=== PATIENT | male | born 1970 | race Caucasian/White ===

== ENCOUNTER 2017-07-08 00:21 | Inpatient (IN) | payer OTHER ==
[~2017-07-08] VITALS: Ht 167.6 cm; Wt 114.3 kg
[2017-07-08 00:29] VITALS: BP 123/76
[2017-07-08 00:54] LABS: ABSOLUTE LYMPHOCYTES 1.9 thou/uL (0.8-5.3); ABSOLUTE NEUTROPHILS 13.2 thou/uL (1.6-8.1); BASOPHILS 0.3 %; HEMATOCRIT 46.9 % (42.0-52.0); HEMOGLOBIN 16.2 gm/dL (14.0-18.0); LYMPHOCYTES 11.7 %; MCH 28.9 pg (26.0-34.0); MCHC 34.5 g/dL (28.0-37.0); MCV 83.7 fL (80.0-100.0); MONOCYTES 6.1 %; MPV 8.5 fl. (7.2-11.1); NUCLEATED RBCS 0 /100WBC; PLATELET COUNT* 273 thou/uL (150-400); POLYS 81.9 %; RDW-CV 13.5 % (10.5-14.5); WBC 16.2 thou/uL (4.0-11.0)
[2017-07-08 00:57] LABS: ANION GAP 10 mmol/L (7-16); BUN 20 mg/dL (7-18); CALCIUM 8.7 mg/dL (8.5-10.1); CHLORIDE 103 mmol/L (98-107); CO2 28 mmol/L (21-32); CREATININE 1.2 mg/dL (0.6-1.3); GLUCOSE 143 mg/dL (70-99); POTASSIUM 3.3 mmol/L (3.5-5.1); SODIUM 141 mmol/L (136-145)
[2017-07-08 01:04] LABS: ALBUMIN 4.1 g/dL (3.4-5.0); ALKALINE PHOSPHATASE 83 U/L (46-116); SGOT 13 U/L (15-37); SGPT 40 U/L (30-65); TOTAL BILIRUBIN 1.4 mg/dL (<0.1-1.0); TOTAL PROTEIN 8.1 g/dL (6.4-8.2); TROPONIN-I LEVEL <0.06 ng/mL (<0.06)
[2017-07-08 01:18] LABS: APTT 28.1 Seconds (25.0-31.3); INR 1.1; PROTIME 10.7 Seconds (9.20-11.50)
[2017-07-08 01:21] LABS: NT-PRO BRAIN NAT PEPTIDE 88 pg/mL (<300)
[2017-07-08 01:37] LABS: AMYLASE 39 U/L (25-115); LIPASE 154 U/L (73-393)
[2017-07-08 03:00] VITALS: BP 106/65
[2017-07-08 03:23] LABS: URINE BILIRUBIN NEGATIVE (Negative); URINE BLOOD TRACE (Negative); URINE CLARITY CLEAR; URINE COLOR YELLOW; URINE GLUCOSE-RANDOM NEGATIVE (Negative); URINE KETONES NEGATIVE (Negative); URINE LEUKOCYTES-REFLEX NEGATIVE (Negative); URINE NITRITE-REFLEX NEGATIVE (Negative); URINE PROTEIN TRACE (Negative); URINE SPECIFIC GRAVITY <= 1.005 (1.005-1.030); URINE UROBILINOGEN 0.2 E.U./dl (0.2-1.0)
--- NOTE | 2017-07-08 07:50 | NUR ---
PT ARRIVED AT 0310 ADMITTED TO ROOM 105, PT COMPLAINS OF MILD ABD PAIN RATES 4/10 AND DESCRIBES SHARP PRESSURE, PT DENIES N/V, IS ALERT AND OREINTED X4, PT ABLE TO AMBULATE FROM STRETCHER TO BED WITHOUT DIFFICULTY, ASSESSMENT COMPLETE, MEDICATIONS ADMINISTERED AND IV FLUIDS INITIATED, PT RESTING QUIETLY WITH EYES CLOSED, REPORTED TO ALEXIS ARCINIEGA
[2017-07-08 08:01] VITALS: BP 103/64
--- NOTE | 2017-07-08 13:38 | EKG ---
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
--- NOTE | 2017-07-08 13:39 | EKG ---
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
[2017-07-08 16:53] VITALS: BP 120/82
--- NOTE | 2017-07-08 17:08 | NUR ---
ASSUMED CARE OF PATIENT AFTER REPORT THIS MORNING. PATIENT AWAKE, ALERT, AND ORIENTED APPROPRIATELY. PHYSICAL ASSESSMENT COMPLETED AND CHARTED. COMPLAINED OF PAIN THIS SHIFT. GIVEN PRN AND SCHEDULED MEDICATIONS, SEE EMAR FOR DOCUMENTATION. VITAL SIGNS STABLE. OXYGEN SATURATION WITHIN NORMAL LIMITS ON 2 LPM PER NASAL CANULA. ON ROOM AIR PATIENT'S OXYGEN SATURATION 87%. PATIENT IS UP AD JODI WITH BATHROOM PRIVELEGES. USES CALL LIGHT APPROPRIATELY, WITHIN REACH. DENIES NEEDS AT THIS TIME. NURSING WILL CONTINUE TO MONITOR.
[2017-07-09 01:08] VITALS: BP 126/78
--- NOTE | 2017-07-09 04:22 | NUR ---
PATIENT RESTING QUIETLY IN BED THIS AM ON HOURLY ROUNDS. PAIN CONTROLLED WITH TORADOL. UP AD JODI. IVF INFUSING ORDERED. NPO. VITALS STABLE. AFEBRILE. AT BEDSIDE. CONTINUE TO MONITOR.
[2017-07-09 05:05] LABS: HEMATOCRIT 42.4 % (42.0-52.0); HEMOGLOBIN 14.6 gm/dL (14.0-18.0); MCH 29.2 pg (26.0-34.0); MCHC 34.4 g/dL (28.0-37.0); MCV 84.8 fL (80.0-100.0); MPV 9.1 fl. (7.2-11.1); NUCLEATED RBCS 0 /100WBC; PLATELET COUNT* 210 thou/uL (150-400); RDW-CV 14.2 % (10.5-14.5); WBC 16.7 thou/uL (4.0-11.0)
[2017-07-09 05:14] LABS: CALCIUM 8.7 mg/dL (8.5-10.1); CREATININE 1.4 mg/dL (0.6-1.3); MAGNESIUM 2.1 mg/dL (1.8-2.4); PHOSPHORUS* 3.4 mg/dL (2.5-4.9); POTASSIUM 3.6 mmol/L (3.5-5.1)
[2017-07-09 07:01] LABS: ABSOLUTE LYMPHOCYTES 1.2 thou/uL (0.8-5.3); ABSOLUTE MONOCYTES 1.8 thou/uL (0.0-1.2); ABSOLUTE NEUTROPHILS 13.7 thou/uL (1.6-8.1); ATYPICAL LYMPHS 1 %; PLATELET ESTIMATE ADEQUATE
[2017-07-09 07:50] VITALS: BP 112/70
[2017-07-09 08:45] VITALS: BP 112/70
[2017-07-09 12:30] VITALS: BP 108/72
--- NOTE | 2017-07-09 15:43 | NUR ---
MET WITH PT TO DISCUSS HOME SITUATIN/DC PLANNING. PT LIVES WITH AND STEPDTR. 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 USES NO EQUIPMENT. HE DENIES ANY DC NEEDS AT THIS TIME. WILL FOLLOW
[2017-07-09 15:45] VITALS: BP 115/77
--- NOTE | 2017-07-09 15:56 | NUR ---
I agree with skilled nursing case manager, Sandra Cobb's assessment and VS documentation.
--- NOTE | 2017-07-09 18:50 | NUR ---
PATIENT REMAINED ALERT AND ORIENTED X'S 4. VITAL SIGNS AND SPO2 STABLE. IV CLEAN, FLUIDS INFUSING. PAIN WELL CONTROLLED WITH PAIN MEDS. TOLERATED DIET, NO NAUSEA AND VOMITING. COMPLETED WALKING FOR 20 MINUTES AROUND UNIT. PASSED BM AND VOIDED WITHOUT ISSUE. COMPLETED HOURLY ROUNDING. CALL LIGHT WITHIN REACH. WILL CONTINUE TO MONITOR.
[2017-07-10 00:29] VITALS: BP 104/64
--- NOTE | 2017-07-10 04:16 | NUR ---
PATIENT ALERT AND ORIENTED X4. UP AD JODI. PAIN CONTROLLED WITH SCHEDULED TORADOL AND DILUADID X1. IVF INFUSING ORDERED. VITALS STABLE ON 2L O2 NC. AT BEDSIDE. WILL CONTINUE TO MONITOR.
[2017-07-10 04:29] LABS: ABSOLUTE LYMPHOCYTES 0.8 thou/uL (0.8-5.3); ABSOLUTE MONOCYTES 0.8 thou/uL (0.0-1.2); ABSOLUTE NEUTROPHILS 11.4 thou/uL (1.6-8.1); BASOPHILS 0.1 %; EOSINOPHILS 0.1 %; HEMATOCRIT 39.5 % (42.0-52.0); HEMOGLOBIN 13.4 gm/dL (14.0-18.0); LYMPHOCYTES 6.1 %; MCV 85.2 fL (80.0-100.0); MONOCYTES 5.9 %; MPV 8.7 fl. (7.2-11.1); NUCLEATED RBCS 0 /100WBC; PLATELET COUNT* 212 thou/uL (150-400); POLYS 87.8 %; RBC 4.63 mil/uL (4.50-6.00)
[2017-07-10 04:52] LABS: ALBUMIN 3.1 g/dL (3.4-5.0); CALCIUM 8.6 mg/dL (8.5-10.1); CREATININE 1.2 mg/dL (0.6-1.3); POTASSIUM 3.9 mmol/L (3.5-5.1); TOTAL BILIRUBIN 1.4 mg/dL (<0.1-1.0); TOTAL PROTEIN 6.9 g/dL (6.4-8.2)
[2017-07-10 07:44] VITALS: BP 115/72
--- NOTE | 2017-07-10 15:18 | NUR ---
OBTAINED FMLA PAPER WORK FROM PT. PLACED ON INSIDE FRONT OF CHART FOR TO FILL OUT.
[2017-07-10 15:54] VITALS: BP 122/68
--- NOTE | 2017-07-10 17:46 | NUR ---
ASSUMED CARE OF PATIENT AFTER MORNING REPORT. ALERT AND ORIENTED X4. ASSESSMENT COMPLETED AND CHARTED. VSS 2.5 LITERS 02. PATIENT HAS HAD NO COMPLAINTS OF NAUSEA THIS SHIFT. PAIN HAS BEEN MANAGED WITH PAIN MEDICATION. FLUIDS AND ANTIBIOTICS INFUSED ORDERED. HOURLY ROUNDS HAVE BEEN MAINTAINED. CALL LIGHT IS WITHIN REACH. NURSING WILL CONTINUE TO MONITOR.
[2017-07-10 21:00] VITALS: BP 122/68
[2017-07-11] VITALS (13 sets, daily range): BP systolic 107–121; BP diastolic 66–77
--- NOTE | 2017-07-11 05:30 | NUR ---
PATIENT ALERT AND ORIENTED. VITALS STABLE. REPORTS MILD PAIN. DENIES THE NEED FOR PAIN MEDICATION. ZOFRAN GIVEN X 1. LOW GRADE FEVER OVER NIGHT. TYLENOL GIVEN. NPO SINCE MIDNIGHT. UP INDEPENDENTLY. REPORTS HAVING A BOWEL MOVEMENT YESTERDAY EVENING. HOURLY ROUNDS. NURSING WILL CONTINUE TO MONITOR.
[2017-07-11 05:56] LABS: HEMATOCRIT 37.6 % (42.0-52.0); MCH 29.2 pg (26.0-34.0); MCHC 34.6 g/dL (28.0-37.0); MCV 84.3 fL (80.0-100.0); MPV 8.4 fl. (7.2-11.1); RBC 4.46 mil/uL (4.50-6.00); RDW-CV 14.1 % (10.5-14.5); WBC 11.8 thou/uL (4.0-11.0)
[2017-07-11 06:08] LABS: CALCIUM 8.1 mg/dL (8.5-10.1); CREATININE 0.9 mg/dL (0.6-1.3); POTASSIUM 3.7 mmol/L (3.5-5.1)
--- NOTE | 2017-07-11 17:24 | NUR ---
ASSUMED CARE OF PATIENT AFTER MORNING REPORT. ALERT AND ORIENTED X4. ASSESSMENT COMPLETED AND CHARTED. VSS ON ROOM AIR. PAT DOES WEAR 2.5 LITERS 02 AT NIGHT BUT SATS ARE 91-93 ON ROOM AIR DURING THE DAY. PATIENT HAS HAD NO COMPLAINTS OF NAUSEA THIS SHIFT. PAIN HAS BEEN MANAGED WITH PAIN MEDICATION. PATIENT HAD A DRAIN PLACED IN THE LOWER LEFT ABDOMEN THIS AFTERNOON FOR DRAINAGE OF AN ABSCESS. PATIENT RETURNED TO ROOM AND ASSESSED. PATIENT INSTRUCTED TO USE CALL LIGHT FOR ASSISTANCE BEFORE GETTING UP AFTER PROCEDURE. HOURLY ROUNDS HAVE BEEN MAINTAINED. CALL LIGHT IS WITHIN REACH. NURSING WILL CONTINUE TO MONITOR.
[2017-07-12 04:10] VITALS: BP 111/63
[2017-07-12 04:35] LABS: HEMATOCRIT 37.3 % (42.0-52.0); HEMOGLOBIN 12.5 gm/dL (14.0-18.0); MCH 28.4 pg (26.0-34.0); MCHC 33.6 g/dL (28.0-37.0); MCV 84.5 fL (80.0-100.0); MPV 8.7 fl. (7.2-11.1); RBC 4.42 mil/uL (4.50-6.00); RDW-CV 14.2 % (10.5-14.5)
--- NOTE | 2017-07-12 04:51 | NUR ---
PATIENT ALERT AND ORIENTED X4. UP AD JODI IN ROOM, TOLERATED WELL. TOLERATING CLEAR LIQUIDS. IVF INFUSING ORDERED. PAIN CONTROLLED WITH DILAUDID, GIVEN X2 THIS SHIFT. ABCESS DRAIN PATENT. VITALS STABLE. CONTINUE TO MONITOR.
[2017-07-12 04:52] LABS: ALBUMIN 2.4 g/dL (3.4-5.0); MAGNESIUM 1.9 mg/dL (1.8-2.4); POTASSIUM 3.7 mmol/L (3.5-5.1); TOTAL BILIRUBIN 0.9 mg/dL (<0.1-1.0); TOTAL PROTEIN 6.5 g/dL (6.4-8.2)
[2017-07-12 08:30] VITALS: BP 126/67
[2017-07-12 16:00] VITALS: BP 119/73
--- NOTE | 2017-07-12 16:30 | NUR ---
PATIENT REMAINED ALERT AND ORIENTED X'S 4. VITAL SIGNS AND SPO2 STABLE. SLIGHT FEVER THIS MORNING, GAVE TYLENOL, FEVER SUBSIDED. IV CLEAN, FLUIDS INFUSING. PAIN WELL CONTROLLED WITH PAIN MEDS. TOLERATED CLEAR LIQUID DIET, NO NAUSEA AND VOMITING. TOLERATED ANTIBIOITICS. UP AD JODI. VOIDED AND PASSED BM. ABCESS DRAIN CLEAN, DRY, INTACT, FLUIDS DRAINING. COMPLETED HOURLY ROUNDING, CALL LIGHT WITHIN REACH. WILL CONTINUE TO MONITOR.
[2017-07-12 20:20] VITALS: BP 112/72
[2017-07-13 00:40] VITALS: BP 101/68
[2017-07-13 03:31] VITALS: BP 106/73
[2017-07-13 04:10] LABS: HEMATOCRIT 37.1 % (42.0-52.0); HEMOGLOBIN 12.5 gm/dL (14.0-18.0); MCH 28.7 pg (26.0-34.0); MCHC 33.8 g/dL (28.0-37.0); MPV 8.3 fl. (7.2-11.1); RBC 4.37 mil/uL (4.50-6.00); WBC 11.9 thou/uL (4.0-11.0)
[2017-07-13 04:20] LABS: CALCIUM 8.2 mg/dL (8.5-10.1); CREATININE 0.9 mg/dL (0.6-1.3); POTASSIUM 3.6 mmol/L (3.5-5.1)
--- NOTE | 2017-07-13 07:58 | NUR ---
Alert and oriented x 4. He has stable vital signs,O2 sat normal on 2L n/c. His abdomen was distended and he felt uncomfortable. He was having flatus and liquid BM's he stated. Bowel sounds were hypoactive. Dr Higgins notified and orders were received for n/g to low intermitten suction. N/g was placed at midnight in L nares and immediate 150 mls recieved then another 400 mls after. Placement confirmed. His abdomen had become more distended from 2000 to 0000 last evening. This am it appears less distended. He was medicated x 2 for abdominal pain. He is NPO.
[2017-07-13 08:05] VITALS: BP 102/62
[2017-07-13 16:00] VITALS: BP 111/60
--- NOTE | 2017-07-13 16:51 | NUR ---
ASSUMED CARE OF PATIENT AFTER MORNING REPORT. ALERT AND ORIENTED X4. ASSESSMENT COMPLETED AND CHARTED. VSS ON 2 LITERS 02. NO COMPLAINTS OF NAUSEA THIS SHIFT. PAIN HAS BEEN MANAGED WITH PAIN MEDICATION. PATIENT HOOKED TO INTERMITTENT SUCTION VIA NG TUBE WITH MINIMAL OUTPUT THIS SHIFT. PATIENT HAS ASKED TO BE DISCONNECTED FROM SUCTION TO WALK AROUND THE UNIT. PATIENT AMBULATES WELL AND SAFELY. PATIENT STATES THAT HE IS FEELING A LITTLE BIT BETTER SINCE NG PLACEMENT AND DECOMPRESSION. HOURLY ROUNDS HAVE BEEN MAINTAINED. CALL LIGHT IS WITHIN REACH. NURSING WILL CONTINUE TO MONITOR.
[2017-07-13 20:00] VITALS: BP 110/62
[2017-07-13 23:52] VITALS: BP 120/68
[2017-07-14 04:21] VITALS: BP 109/63
--- NOTE | 2017-07-14 05:03 | NUR ---
Alert and oriented x 4. Abdominal drain in LLQ is draining dark green drainage. He has ng to LIS and it also is draining green drainage. Bowel sounds x 4 active. He denies nausea. Abdomen is still distended but soft. He had pain meds x 1. Up independently in his room. O2 at 2L n/c. Vitals are stable. He has slept well.
[2017-07-14 05:14] LABS: HEMATOCRIT 38.5 % (42.0-52.0); HEMOGLOBIN 13.2 gm/dL (14.0-18.0); MCH 28.6 pg (26.0-34.0); MCHC 34.2 g/dL (28.0-37.0); MCV 83.4 fL (80.0-100.0); MPV 8.2 fl. (7.2-11.1); NUCLEATED RBCS 0 /100WBC; PLATELET COUNT* 271 thou/uL (150-400); RBC 4.61 mil/uL (4.50-6.00); RDW-CV 13.5 % (10.5-14.5); WBC 10.4 thou/uL (4.0-11.0)
[2017-07-14 06:00] LABS: ALBUMIN 2.5 g/dL (3.4-5.0); CALCIUM 8.1 mg/dL (8.5-10.1); CREATININE 0.7 mg/dL (0.6-1.3); MAGNESIUM 2.1 mg/dL (1.8-2.4); POTASSIUM 3.7 mmol/L (3.5-5.1); TOTAL BILIRUBIN 0.7 mg/dL (<0.1-1.0); TOTAL PROTEIN 5.8 g/dL (6.4-8.2)
[2017-07-14 06:15] LABS: ABSOLUTE EOSINOPHILS 0.1 thou/uL (0.0-0.7); ABSOLUTE LYMPHOCYTES 1.5 thou/uL (0.8-5.3); ABSOLUTE MONOCYTES 0.8 thou/uL (0.0-1.2); PLATELET ESTIMATE ADEQUATE
[2017-07-14 06:16] LABS: ANISOCYTOSIS Occasional
--- NOTE | 2017-07-14 06:43 | NUR ---
Patient accidently pulled out his NG tube. He denies nausea. He has bowel sounds x 4 and abdomen is soft. He states he had 3 BM's this am that equalled a large BM and they were formed stool. Surgical residents just rounded and they were told of the above. They said he could keep NG out and they are going to advance his diet.
--- NOTE | 2017-07-14 12:57 | NUR ---
PT'S MEDICAL CHART REVIEWED AND STATUS DISCUSSED W/ NSG. NSG INDICATES PT IS UP AD JODI INDEP IN ROOM W/O DME SUPPORT. PT VOICES NO CONCERNS REGARDING DISCHARGE TO HOME. PT DEMO STABLE INDEP MOBILITY IN ROOM W/O DME. NO FURTHER ACUTE PT SERVICES ARE INDICATED.
[2017-07-14 16:00] VITALS: BP 123/75
--- NOTE | 2017-07-14 16:29 | NUR ---
PATIENT REMAINS ALERT AND ORIENTED. DENIES PAIN OR NAUSEA. ABSCESS TUBE REMAINS IN PLACE WITH MINIMAL DARK GREEN DRAINAGE. PATIENT TOLERATING CLEAR LIQUIDS. AMBULATING AD JODI. VSS. REPORTS MULTIPLE BOWEL MOVEMENTS. CALL LIGHT WITHIN REACH. WILL CONTINUE TO MONITOR.
[2017-07-14 20:40] VITALS: BP 117/68
[2017-07-15 04:27] VITALS: BP 121/62
[2017-07-15 04:45] LABS: ABSOLUTE EOSINOPHILS 0.1 thou/uL (0.0-0.7); ABSOLUTE MONOCYTES 1.2 thou/uL (0.0-1.2); ABSOLUTE NEUTROPHILS 7.1 thou/uL (1.6-8.1); BASOPHILS 0.3 %; EOSINOPHILS 1.2 %; HEMATOCRIT 37.3 % (42.0-52.0); HEMOGLOBIN 12.9 gm/dL (14.0-18.0); LYMPHOCYTES 10.3 %; MCH 28.5 pg (26.0-34.0); MCHC 34.5 g/dL (28.0-37.0); MCV 82.5 fL (80.0-100.0); MONOCYTES 12.4 %; MPV 8.1 fl. (7.2-11.1); NUCLEATED RBCS 0 /100WBC; PLATELET COUNT* 314 thou/uL (150-400); POLYS 75.8 %; RBC 4.52 mil/uL (4.50-6.00); RDW-CV 14.1 % (10.5-14.5); WBC 9.4 thou/uL (4.0-11.0)
[2017-07-15 04:49] LABS: CALCIUM 8.2 mg/dL (8.5-10.1); CREATININE 0.8 mg/dL (0.6-1.3); POTASSIUM 3.5 mmol/L (3.5-5.1)
--- NOTE | 2017-07-15 05:32 | NUR ---
PATIENT ALERT AND ORIENTED. VITALS STABLE. RA. COMPLAINTS OF MILD NAUSEA. ZOFRAN GIVEN X 1. UP INDEPENDENTLY IN ROOM. REPORTS MULTIPLE BOWEL MOVEMENTS. ABSCESS DRAIN IN PLACE WITH MINIMAL OUTPUT. HOURLY ROUNDS. NURSING WILL CONTINUE TO MONITOR.
[2017-07-15 07:30] VITALS: BP 111/77
[2017-07-15 16:32] VITALS: BP 110/71
--- NOTE | 2017-07-15 17:06 | NUR ---
ALERT AND ORIENTED X4. UP AD JODI IN ROOM. IV IS PATENT AND SALINE LOCKED. DENIES PAIN AND NAUSEA. TOLERATING CLEAR LIQUID DIET. VSS ON ROOM AIR. HOURLY ROUNDS HAVE BEEN MAINTAINED THROUGHOUT SHIFT. CALL LIGHT IS WITH IN REACH. NURSING WILL CONTINUE TO MONITOR.
[2017-07-16 04:21] VITALS: BP 109/60
--- NOTE | 2017-07-16 04:39 | NUR ---
PATIENT ORIENTED X4 ON HOURLY ROUNDS. VITALS STABLE ON ROOM AIR. UP AD JODI. DENIES NEED FOR PAIN OR NAUSEA MEDICATION. IV ABX INFUSED ORDERED. NPO SINCE MIDNIGHT. WILL CONTINUE TO MONITOR.
[2017-07-16 04:48] LABS: ABSOLUTE EOSINOPHILS 0.1 thou/uL (0.0-0.7); ABSOLUTE LYMPHOCYTES 1.2 thou/uL (0.8-5.3); ABSOLUTE NEUTROPHILS 8.3 thou/uL (1.6-8.1); BASOPHILS 0.3 %; CALCIUM 8.1 mg/dL (8.5-10.1); CREATININE 0.8 mg/dL (0.6-1.3); EOSINOPHILS 1.2 %; HEMATOCRIT 38.5 % (42.0-52.0); HEMOGLOBIN 13.2 gm/dL (14.0-18.0); LYMPHOCYTES 11.2 %; MCH 28.5 pg (26.0-34.0); MCHC 34.2 g/dL (28.0-37.0); MCV 83.3 fL (80.0-100.0); MONOCYTES 9.8 %; MPV 8.4 fl. (7.2-11.1); NUCLEATED RBCS 0 /100WBC; PLATELET COUNT* 327 thou/uL (150-400); POLYS 77.5 %; RBC 4.63 mil/uL (4.50-6.00); RDW-CV 13.8 % (10.5-14.5); WBC 10.7 thou/uL (4.0-11.0)
[2017-07-16 08:00] VITALS: BP 112/62
[2017-07-16] MEDS ORDERED: FLAGYL500 MG PO (11:27)
[2017-07-16] MEDS ORDERED: BACTRIM DS TAB1 EACH PO (11:27)
[2017-07-16 16:00] VITALS: BP 102/65
--- NOTE | 2017-07-16 16:07 | NUR ---
PATIENT REMAINS ALERT AND ORIENTED. DENIES PAIN OR NAUSEA. PO ANTIBIOTICS STARTED THIS AFTERNOON. TOLERATING REGULAR DIET. IV SALINE LOCKED. DR. GLEASON INFORMED THAT SURGERY WAS OK WITH DISCHARGE FOR PATIENT. DR. GLEASON WOULD LIKE PATIENT TO STAY UNTIL TOMORROW. PATIENT AMBULATES AD JODI. BM THIS AM. VOIDING WELL. PAINT SUPERVISOR PULLED ABSCESS DRAINAGE TUBE THIS AFTERNOON. CALL LIGHT WITHIN REACH. WILL CONTINUE TO MONITOR.
[2017-07-16 20:00] VITALS: BP 117/76
[2017-07-17 00:02] VITALS: BP 117/70
[2017-07-17 04:02] LABS: HEMATOCRIT 39.1 % (42.0-52.0); HEMOGLOBIN 13.3 gm/dL (14.0-18.0); MCH 28.5 pg (26.0-34.0); MCHC 34.1 g/dL (28.0-37.0); MCV 83.5 fL (80.0-100.0); MPV 8.1 fl. (7.2-11.1); NUCLEATED RBCS 0 /100WBC; PLATELET COUNT* 354 thou/uL (150-400); RBC 4.68 mil/uL (4.50-6.00); RDW-CV 13.8 % (10.5-14.5)
[2017-07-17 04:31] LABS: CALCIUM 7.9 mg/dL (8.5-10.1); CREATININE 0.8 mg/dL (0.6-1.3); POTASSIUM 4.1 mmol/L (3.5-5.1)
--- NOTE | 2017-07-17 04:38 | NUR ---
PATIENT ORIENTED X4 THROUGHOUT THE SHIFT. UP AD JODI. TOLERATING DIET. DENIES PAIN OR NAUSEA. VITALS STABLE. AT BEDSIDE. CONTINUE TO MONITOR.
[2017-07-17 06:24] LABS: ABSOLUTE LYMPHOCYTES 1.7 thou/uL (0.8-5.3); ABSOLUTE MONOCYTES 0.6 thou/uL (0.0-1.2); ABSOLUTE NEUTROPHILS 11.8 thou/uL (1.6-8.1); ANISOCYTOSIS 1+; PLATELET ESTIMATE ADEQUATE; POIKILOCYTOSIS 1+
[2017-07-17 08:03] VITALS: BP 128/64
[2017-07-17 10:14] VITALS: BP 128/64
--- NOTE | 2017-07-17 11:40 | NUR ---
CM SPOKE TO THE PATIENT TO DISCUSS ANY QUESTIONS OR CONCERNS HAT HE MAY HAVE AND TO INFORM THAT THE PATIENTS [employer] PAPERWORK HAD BEEN SIGNED BY THE PHYSICIAN AND FAXED TO HIS EMPLOYER. PATIENT HAS NO QUESTIONS OR CONCERNS AT THIS TIME. CM WILL REMAIN AVAILABLE TO ASSIST AND FOLLOW NEEDED.
--- NOTE | 2017-07-17 11:43 | NUR ---
Nutrition: Educated pt on low-residue diet per nursing request. Provided with ADA Low-Fiber Nutrition Therapy handout. Discussed foods to choose & avoid during diverticulits flare-ups. Pt exhibited a good understanding. Pt states he is eating much better now. Provided with RD contact info to call with questions.
--- NOTE | 2017-07-17 13:12 | NUR ---
PATIENT DISCHARGED TO HOME AT THIS TIME. IV REMOVED. POSTAL SUPERINTENDENT PROVIDED PATIENT WITH INFORMATION ON LOW RESIDE, AND HIGH FIBER DIET. SCRIPTS FOR ORAL ANTIBIOTICS GIVEN. TOLERATING MEALS. DISCHARGED WITH .
--- NOTE | 2017-08-12 16:34 | CON ---
[address] [address] CONSULTATION Name: AUTUMN ROBERTSON Room: [address]#: [id number] Admission: 07/08/17 Attend Phys: Taylor Gates Discharge: 07/17/17 Date of : 68 Report #: [id number] THIS REPORT FOR: //name// CC: KEEGAN physician/PCP Aubrey Costello REASON FOR CONSULTATION: I was asked to evaluate concerning diverticular abscess. HISTORY OF PRESENT ILLNESS: The patient is a 46-year-old admitted on 07/08/2017 with acute onset abdominal pain associated with fever and chills. CT scan showed evidence of diverticulitis with perforation. Drain was placed. Placed on IV antibiotic therapy including ciprofloxacin and metronidazole. Overall, his pain has diminished. His temperature has come down. No prior history of GI or issues. ALLERGIES: INCLUDE PENICILLIN. MEDICATIONS: As noted on his MAR including the ciprofloxacin and metronidazole. PAST MEDICAL HISTORY: Vasectomy and nasal surgery. FAMILY HISTORY: Cancer. SOCIAL HISTORY: He is a nonsmoker, no significant alcohol intake. REVIEW OF SYSTEMS: No cardiopulmonary or complaints. PHYSICAL EXAMINATION: VITAL SIGNS: Afebrile and hemodynamically stable. GENERAL: He is alert and cooperative. Peripheral IV in place. HEENT: Unremarkable. CHEST: Clear. HEART: Regular. GASTROINTESTINAL: Moderately obese. Abdomen was mildly distended with tenderness in the left lower quadrant. A drain with green fluid in the bag. EXTERNAL GENITALIA: Unremarkable. EXTREMITIES: Unremarkable. LABORATORY STUDIES: Sodium 139, potassium 3.6, bicarbonate 32, creatinine 0.9. Liver function test normal. Hemoglobin 12.5, white count 11.9 down from 16.2 on admission, platelet count 220,000. Differential unremarkable. Urinalysis, trace protein, otherwise unremarkable. Abscess culture currently pending. Gram stain showed gram-positive cocci. Blood culture is negative today. CT of the abdomen showed sigmoid diverticulitis with air fluid level in the pelvis. There was small-bowel obstruction developing posterior [place] [address] CONSULTATION Name: AUTUMN ROBERTSON Room: [address]#: [id number] Admission: 07/08/17 Attend Phys: Taylor Gates Discharge: 07/17/17 Date of : 68 Report #: [id number] IMPRESSION: Diverticulitis with perforation and abscess. The fluid that is in his drainage bag looks thin, bilious in color. I am concerned about small bowel injury. The patient has ALLERGY TO PENICILLIN. PLAN: Recommend continuing antibiotic coverage with meropenem. Follow laboratory studies and drainage output. <ELECTRONICALLY SIGNED> By: Marcell Clemons MD 08/12/17 1634 1447 1925Marcell Clemons MD /nt
== END 2017-07-17 13:12 | disposition home or self-care (01) | DRG 872 ==
LOC: M.ERS 00:21 → M.TBA-ER 02:11 → M.ORTHSURG 02:11
PROVIDERS: Family Medicine; Personal Emergency Response Attendant; Surgery; ADMIT Internal Medicine
PROC: 0W9G30Z Drainage of Peritoneal Cavity with Drainage Device, Percutaneous Approach (ICD-10-PCS; principal; 2017-07-11)
DX: A41.9 Sepsis, unspecified organism (principal); K57.20 Diverticulitis of large intestine with perforation and abscess without bleeding; N17.9 Acute kidney failure, unspecified; J96.10 Chronic respiratory failure, unspecified whether with hypoxia or hypercapnia; K56.609 Unspecified intestinal obstruction, unspecified as to partial versus complete obstruction; E87.6 Hypokalemia; N18.3 Chronic kidney disease, stage 3 (moderate); Z98.52 Vasectomy status; Z88.0 Allergy status to penicillin; Z80.9 Family history of malignant neoplasm, unspecified

== ENCOUNTER → 2017-09-23 | Outpatient (CLI) | payer OTHER ==
[~2017-09-23] MED LIST: ACIDOPHILUS1 EAC4 PO; BACTRIM DS TAB1 EACH PO; CARAFATE 11 GM/10 M1 PO; CIPRO500 MG PO; COLACE100 MG PO; FLAGYL500 MG PO; HYDROCODONE-AP1 EAC6 PO; MIRALAX17 GM PO; PHENERGAN12.5 M2 PO; PROTONIX40 M1 PO; REGLAN 10 MG TA10 MG PO; THERA M PLUS T1 EAC2 PO; TRAMADOL 50 MG50 MG PO; ZYVOX600 MG PO
[2017-09-23 08:43] LABS: ABSOLUTE EOSINOPHILS 0.1 thou/uL (0.0-0.7); ABSOLUTE LYMPHOCYTES 1.7 thou/uL (0.8-5.3); ABSOLUTE MONOCYTES 0.5 thou/uL (0.0-1.2); ABSOLUTE NEUTROPHILS 4.5 thou/uL (1.6-8.1); BASOPHILS 0.6 %; EOSINOPHILS 1.1 %; HEMATOCRIT 45.3 % (42.0-52.0); HEMOGLOBIN 15.7 gm/dL (14.0-18.0); LYMPHOCYTES 24.6 %; MCH 28.4 pg (26.0-34.0); MCHC 34.6 g/dL (28.0-37.0); MONOCYTES 7.7 %; NUCLEATED RBCS 0 /100WBC; PLATELET COUNT* 229 thou/uL (150-400); RBC 5.52 mil/uL (4.50-6.00); RDW-CV 14.7 % (10.5-14.5); WBC 6.8 thou/uL (4.0-11.0)
[2017-09-23 08:57] LABS: ALBUMIN 3.7 g/dL (3.4-5.0); CALCIUM 8.7 mg/dL (8.5-10.1); CREATININE 0.8 mg/dL (0.6-1.3); POTASSIUM 3.7 mmol/L (3.5-5.1); TOTAL BILIRUBIN 0.8 mg/dL (<0.1-1.0); TOTAL PROTEIN 7.8 g/dL (6.4-8.2)
[2017-09-23 09:46] LABS: ESR (SEDRATE) 3 mm/hr (0-15)
== END ==
LOC: M.CT 08:26
PROVIDERS: Internal Medicine Gastroenterology
DX: K57.92 Diverticulitis of intestine, part unspecified, without perforation or abscess without bleeding (principal)

== ENCOUNTER 2017-11-14 06:59 | Inpatient (IN) | payer OTHER ==
[~2017-11-14] VITALS: Ht 165.1 cm; Wt 111.1 kg
--- NOTE | ~2017-11-14 | H ---
[address] [address] HISTORY AND PHYSICAL Name: AUTUMN ROBERTSON Room: [address] IN ..#: [id number] Admission: 11/14/17 Attend Phys: Faiza Prieto DO Discharge: 11/21/17 Date of : 68 Report #: [id number] THIS REPORT FOR: //name// Please refer to the History and Physical performed in the physician's office. By: [facility]5Medical Records Staff MAYANK /LUCIE
[~2017-11-14 06:59] MED LIST changes: -ACIDOPHILUS1 EAC4 PO; -CARAFATE 11 GM/10 M1 PO; -CIPRO500 MG PO; -COLACE100 MG PO; -HYDROCODONE-AP1 EAC6 PO; -MIRALAX17 GM PO; -PHENERGAN12.5 M2 PO; -PROTONIX40 M1 PO; -REGLAN 10 MG TA10 MG PO; -THERA M PLUS T1 EAC2 PO; -TRAMADOL 50 MG50 MG PO; -ZYVOX600 MG PO
[2017-11-14 07:15] VITALS: BP 122/80
[2017-11-14 08:08] LABS: HEMATOCRIT 48.1 % (42.0-52.0); HEMOGLOBIN 16.3 gm/dL (14.0-18.0); MCH 28.8 pg (26.0-34.0); MCV 84.7 fL (80.0-100.0); MPV 8.6 fl. (7.2-11.1); RBC 5.68 mil/uL (4.50-6.00); RDW-CV 14.4 % (10.5-14.5); WBC 5.8 thou/uL (4.0-11.0)
[2017-11-14 08:20] LABS: CALCIUM 8.7 mg/dL (8.5-10.1); CREATININE 0.8 mg/dL (0.6-1.3); POTASSIUM 3.9 mmol/L (3.5-5.1)
[2017-11-14 08:35] LABS: ALBUMIN 3.9 g/dL (3.4-5.0); TOTAL BILIRUBIN 1.9 mg/dL (<0.1-1.0); TOTAL PROTEIN 8.2 g/dL (6.4-8.2)
[2017-11-14 14:20] VITALS: BP 118/71
[2017-11-14 21:30] VITALS: BP 124/76
[2017-11-15 03:30] VITALS: BP 113/73
[2017-11-15 03:59] LABS: HEMOGLOBIN 14.7 gm/dL (14.0-18.0); MCH 28.9 pg (26.0-34.0); MCHC 34.3 g/dL (28.0-37.0); MCV 84.2 fL (80.0-100.0); MPV 8.8 fl. (7.2-11.1); NUCLEATED RBCS 0 /100WBC; PLATELET COUNT* 216 thou/uL (150-400); RDW-CV 13.8 % (10.5-14.5); WBC 13.1 thou/uL (4.0-11.0)
[2017-11-15 04:04] LABS: CALCIUM 8.6 mg/dL (8.5-10.1); CREATININE 0.9 mg/dL (0.6-1.3)
[2017-11-15 04:30] LABS: ABSOLUTE LYMPHOCYTES 1.3 thou/uL (0.8-5.3); ABSOLUTE MONOCYTES 0.7 thou/uL (0.0-1.2); ABSOLUTE NEUTROPHILS 11.1 thou/uL (1.6-8.1); PLATELET ESTIMATE ADEQUATE
[2017-11-15 04:31] LABS: TOXIC GRANULATION 1+
[2017-11-15 08:44] VITALS: BP 103/75
[2017-11-15 16:00] VITALS: BP 115/75
[2017-11-15 21:30] VITALS: BP 135/92
[2017-11-15 23:51] VITALS: BP 132/83
[2017-11-16 04:30] VITALS: BP 129/83
[2017-11-16 08:30] VITALS: BP 123/73
[2017-11-16 16:25] VITALS: BP 134/70
[2017-11-16 20:00] VITALS: BP 117/71
[2017-11-17 00:06] LABS: HEMATOCRIT 43.3 % (42.0-52.0); MCH 29.2 pg (26.0-34.0); MCHC 34.6 g/dL (28.0-37.0); MCV 84.5 fL (80.0-100.0); MPV 8.3 fl. (7.2-11.1); RBC 5.13 mil/uL (4.50-6.00); RDW-CV 14.4 % (10.5-14.5); WBC 5.9 thou/uL (4.0-11.0)
[2017-11-17 00:30] VITALS: BP 112/60
[2017-11-17 01:00] LABS: BE -5.1 mmol/L (-2 to +3); HCO3 17.9 mmol/L (22.0-26.0); PCO2 28.7 mmHg (35.0-45.0); PO2 64.4 mmHg (75.0-100.0); pH 7.413 (7.340-7.450)
[2017-11-17 01:35] LABS: ANION GAP 8 mmol/L (7-16); BUN 21 mg/dL (7-18); CHLORIDE 100 mmol/L (98-107); CO2 25 mmol/L (21-32); CREATININE 1.2 mg/dL (0.6-1.3); GLUCOSE 102 mg/dL (70-99); SODIUM 133 mmol/L (136-145); TROPONIN-I LEVEL <0.06 ng/mL (<0.06)
[2017-11-17 05:00] VITALS: BP 112/65
[2017-11-17 07:01] LABS: CALCIUM 8.4 mg/dL (8.5-10.1); CREATININE 1.3 mg/dL (0.6-1.3); PHOSPHORUS* 2.7 mg/dL (2.5-4.9); POTASSIUM 4.2 mmol/L (3.5-5.1)
[2017-11-17 08:10] LABS: HEMATOCRIT 43.4 % (42.0-52.0); HEMOGLOBIN 14.6 gm/dL (14.0-18.0); MCH 28.9 pg (26.0-34.0); MCHC 33.6 g/dL (28.0-37.0); MCV 85.8 fL (80.0-100.0); MPV 9.1 fl. (7.2-11.1); NUCLEATED RBCS 0 /100WBC; PLATELET COUNT* 176 thou/uL (150-400); RBC 5.05 mil/uL (4.50-6.00); RDW-CV 14.5 % (10.5-14.5); WBC 7.3 thou/uL (4.0-11.0)
[2017-11-17 08:51] VITALS: BP 107/70
[2017-11-17 08:59] LABS: ABSOLUTE LYMPHOCYTES 0.4 thou/uL (0.8-5.3); ABSOLUTE MONOCYTES 0.4 thou/uL (0.0-1.2); ABSOLUTE NEUTROPHILS 6.4 thou/uL (1.6-8.1); ATYPICAL LYMPHS 1 %; LARGE PLATELETS OCCASIONAL; PLATELET ESTIMATE ADEQUATE; POLYCHROMASIA 1+
[2017-11-17 13:02] LABS: URINE BLOOD 2+ (Negative); URINE CLARITY CLEAR; URINE COLOR DARK YELLOW; URINE GLUCOSE-RANDOM NEGATIVE (Negative); URINE KETONES NEGATIVE (Negative); URINE LEUKOCYTES-REFLEX NEGATIVE (Negative); URINE PROTEIN 3+ (Negative); URINE SPECIFIC GRAVITY >= 1.030 (1.005-1.030)
[2017-11-17 13:05] LABS: ICTOTEST (BILI CONFIRMATORY) Positive (Negative); URINE BILIRUBIN 2+ (Negative); URINE NITRITE-REFLEX POSITIVE (Negative)
[2017-11-17 13:13] LABS: HYALINE CASTS >10 Many /LPF (None Seen); MUCUS 4-6 Moderate strn/LPF (None Seen); SQUAMOUS NONE SEEN /LPF (0-3)
[2017-11-17 13:14] LABS: CRYSTALS None Seen /LPF (None Seen); URINE WBC-REFLEX 0-5 Rare /HPF (0-5)
[2017-11-17 13:15] LABS: URINE RBC 0-2 Rare /HPF (0-2)
[2017-11-17 16:00] VITALS: BP 110/62
--- NOTE | 2017-11-17 18:42 | EKG ---
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1970 Requested By: Faiza Prieto Order Number: [id number] Simran MD: Ariel Blanco Measurements Intervals [place] Rate: 125 P: 2 NC: 133 QRS: -21 QRSD: 107 T: 15 QT: 301 QTc: 434 Interpretive Statements Sinus tachycardia S1,S2,S3 pattern Abnormal R-wave progression, late transition ST elev, probable normal early repol pattern Compared to ECG 07/08/2017 01:31:59 ST (T wave) deviation now present Right bundle-branch block no longer present Electronically Signed On 11-17-2017 18:42:49 CDT by Ariel Blanco [email or web address] <ELECTRONICALLY SIGNED> By: Ariel Blanco MD, FACC 11/17/17 1842 36 36 Ariel Blanco MD, FAC /EPI
[2017-11-17 20:20] VITALS: BP 102/66
[2017-11-18 04:16] LABS: ABSOLUTE LYMPHOCYTES 0.4 thou/uL (0.8-5.3); ABSOLUTE MONOCYTES 0.6 thou/uL (0.0-1.2); BASOPHILS 0.2 %; HEMATOCRIT 37.4 % (42.0-52.0); HEMOGLOBIN 12.8 gm/dL (14.0-18.0); LYMPHOCYTES 5.1 %; MCH 28.9 pg (26.0-34.0); MCHC 34.4 g/dL (28.0-37.0); MONOCYTES 7.9 %; MPV 8.8 fl. (7.2-11.1); NUCLEATED RBCS 0 /100WBC; PLATELET COUNT* 181 thou/uL (150-400); POLYS 86.8 %; RBC 4.45 mil/uL (4.50-6.00); RDW-CV 14.1 % (10.5-14.5)
[2017-11-18 04:38] LABS: CALCIUM 8.4 mg/dL (8.5-10.1); CREATININE 1.2 mg/dL (0.6-1.3); MAGNESIUM 2.2 mg/dL (1.8-2.4); PHOSPHORUS* 2.4 mg/dL (2.5-4.9)
[2017-11-18 05:28] LABS: POTASSIUM 2.8 mmol/L (3.5-5.1)
[2017-11-18 08:00] VITALS: BP 113/72
[2017-11-18 15:49] VITALS: BP 127/77
[2017-11-18 20:00] VITALS: BP 115/75
[2017-11-19 04:25] LABS: ABSOLUTE LYMPHOCYTES 0.5 thou/uL (0.8-5.3); ABSOLUTE MONOCYTES 0.9 thou/uL (0.0-1.2); ABSOLUTE NEUTROPHILS 7.6 thou/uL (1.6-8.1); BASOPHILS 0.2 %; EOSINOPHILS 0.1 %; HEMATOCRIT 36.1 % (42.0-52.0); HEMOGLOBIN 12.1 gm/dL (14.0-18.0); LYMPHOCYTES 5.9 %; MCH 28.6 pg (26.0-34.0); MCHC 33.5 g/dL (28.0-37.0); MCV 85.5 fL (80.0-100.0); MPV 8.8 fl. (7.2-11.1); NUCLEATED RBCS 0 /100WBC; PLATELET COUNT* 195 thou/uL (150-400); POLYS 83.8 %; RBC 4.22 mil/uL (4.50-6.00); RDW-CV 14.2 % (10.5-14.5); WBC 9.1 thou/uL (4.0-11.0)
[2017-11-19 04:51] LABS: CALCIUM 8.3 mg/dL (8.5-10.1); MAGNESIUM 2.1 mg/dL (1.8-2.4); PHOSPHORUS* 2.6 mg/dL (2.5-4.9); POTASSIUM 3.2 mmol/L (3.5-5.1)
[2017-11-19 09:39] VITALS: BP 115/65
[2017-11-19 16:01] VITALS: BP 119/72
[2017-11-19 20:00] VITALS: BP 114/73
[2017-11-20 04:02] LABS: ABSOLUTE LYMPHOCYTES 0.9 thou/uL (0.8-5.3); ABSOLUTE MONOCYTES 1.1 thou/uL (0.0-1.2); ABSOLUTE NEUTROPHILS 6.8 thou/uL (1.6-8.1); BASOPHILS 0.3 %; EOSINOPHILS 0.5 %; HEMATOCRIT 36.2 % (42.0-52.0); HEMOGLOBIN 12.3 gm/dL (14.0-18.0); MCH 28.8 pg (26.0-34.0); MCHC 33.9 g/dL (28.0-37.0); MONOCYTES 12.1 %; MPV 8.5 fl. (7.2-11.1); NUCLEATED RBCS 0 /100WBC; PLATELET COUNT* 236 thou/uL (150-400); POLYS 77.1 %; RBC 4.26 mil/uL (4.50-6.00); RDW-CV 14.7 % (10.5-14.5); WBC 8.9 thou/uL (4.0-11.0)
[2017-11-20 04:17] LABS: CALCIUM 8.7 mg/dL (8.5-10.1); CREATININE 0.9 mg/dL (0.6-1.3); MAGNESIUM 2.1 mg/dL (1.8-2.4); PHOSPHORUS* 2.7 mg/dL (2.5-4.9); POTASSIUM 3.3 mmol/L (3.5-5.1)
[2017-11-20 09:52] VITALS: BP 120/76
[2017-11-20 17:08] VITALS: BP 128/73
[2017-11-20 20:30] VITALS: BP 127/79
[2017-11-21] VITALS: BP 114/69
[2017-11-21 04:00] VITALS: BP 101/58
[2017-11-21 04:32] LABS: HEMATOCRIT 35.7 % (42.0-52.0); HEMOGLOBIN 12.2 gm/dL (14.0-18.0); MCH 28.8 pg (26.0-34.0); MCHC 34.3 g/dL (28.0-37.0); MCV 84.2 fL (80.0-100.0); MPV 8.2 fl. (7.2-11.1); NUCLEATED RBCS 0 /100WBC; PLATELET COUNT* 243 thou/uL (150-400); RBC 4.24 mil/uL (4.50-6.00); RDW-CV 14.7 % (10.5-14.5); WBC 10.2 thou/uL (4.0-11.0)
[2017-11-21 04:59] LABS: CALCIUM 8.3 mg/dL (8.5-10.1); CREATININE 0.8 mg/dL (0.6-1.3); MAGNESIUM 1.9 mg/dL (1.8-2.4); PHOSPHORUS* 4.1 mg/dL (2.5-4.9); POTASSIUM 4.1 mmol/L (3.5-5.1)
[2017-11-21 07:00] LABS: ABSOLUTE EOSINOPHILS 0.1 thou/uL (0.0-0.7); ABSOLUTE LYMPHOCYTES 1.6 thou/uL (0.8-5.3); ABSOLUTE MONOCYTES 0.9 thou/uL (0.0-1.2); ABSOLUTE NEUTROPHILS 7.5 thou/uL (1.6-8.1); METAMYELOCYTES 1 %; MYELOCYTES 2 %; PLATELET ESTIMATE ADEQUATE
[2017-11-21 07:01] LABS: ANISOCYTOSIS 1+; POIKILOCYTOSIS 1+; TOXIC GRANULATION 1+
[2017-11-21 08:51] VITALS: BP 110/63
[2017-11-21 15:49] VITALS: BP 110/63
[2017-11-21 16:00] VITALS: BP 118/67
[2017-11-21] MEDS ORDERED: HYDROCODONE-AP1 EAC6 PO (16:00)
[2017-11-21 16:42] VITALS: BP 110/63
[2017-11-21] MEDS ORDERED: COLACE100 MG PO (16:47)
[2017-11-21] MEDS ORDERED: MIRALAX17 GM PO (16:48)
--- NOTE | 2017-11-22 17:56 | OP ---
[address] [address] OPERATIVE REPORT Name: AUTUMN ROBERTSON Room: [address] IN M.R.#: [id number] Admission: 11/14/17 Attend Phys: Faiza Prieto DO Discharge: 11/21/17 Date of : 68 Report #: [id number] THIS REPORT FOR: //name// CC: Faiza Evans DATE OF SERVICE: 11/14/2017 PREOPERATIVE DIAGNOSIS: Recurrent diverticulitis with perforation and abscess. POSTOPERATIVE DIAGNOSIS: Recurrent diverticulitis with perforation and abscess. FINDINGS: Multiple dense adhesions between the anterior abdominal wall, the sigmoid colon and the small bowel. There was a knot of small bowel at the mid abdomen with multiple dense adhesions. There was an area of obvious previous abscess in the left lower quadrant. There were no findings of any purulence or ongoing inflammation. Tattoos were identified at both the distal and proximal margins. SURGEON: Faiza Prieto DO CO-SURGEON: Raji Erwin, PGY-3 and Ezio Liu, PGY1. PROCEDURE PERFORMED: Laparoscopic sigmoid resection with primary anastomosis, mobilization of the splenic flexure, and lysis of adhesions greater than 1 hour. ANESTHESIA: General endotracheal and local. ESTIMATED BLOOD LOSS: 10. DRAINS: Denis catheter. SPECIMENS: Sigmoid colon. COMPLICATIONS: None. CONDITION: Stable. DISPOSITION: PACU to the floor. HISTORY OF PRESENT ILLNESS: The patient is a very pleasant gentleman who is well known to my service after a previous admission at [facility] for previous perforated diverticulitis. At that time, he had undergone drain placement with resolution of the inflammation. He was able to undergo colonoscopy with tattooing. His symptoms had nearly resolved. At that point, [address] [address] OPERATIVE REPORT Name: AUTUMN ROBERTSON Room: [address]#: [id number] Admission: 11/14/17 Attend Phys: Faiza Prieto DO Discharge: 11/21/17 Date of : 68 Report #: [id number] he was then consented for laparoscopic sigmoid resection, possible open. Risks discussed included bleeding, infection, pain, scar formation, injury to bowel or bladder or other intra-abdominal organs, need for an ostomy, need for further surgery and risks of general anesthesia. The patient understood these risks and elected to proceed. PROCEDURE NOTE: The patient was brought to the operating room. He was laid supine on the operating room table. SCDs were placed on bilateral lower extremities. Antibiotics were given in the perioperative period. General endotracheal anesthesia was induced by anesthesia without difficulty. The patient was then placed in lithotomy. Denis catheter was placed per nursing via sterile technique. Abdomen and perineum were then prepped and draped in standard sterile fashion. Timeout was performed to verify patient and procedure. A 10 mL of 0.5% Marcaine were injected in the supraumbilical area. Incision was made with 11 blade. Cautery was used for hemostasis. S retractors were used to visualize the fascia. Fascia was grasped and elevated between 2 Kochers. Fascia was incised using cautery. Peritoneum was bluntly entered using a Demetra clamp. Finger was swept into the abdomen to assure that there were no joanie-incisional adhesions, none were identified. Two stitches of 0 Vicryl were placed on the fascia. Edson trocar was introduced and secured with 0 Vicryl stitches. Abdomen was insufflated. The patient was placed head down and tilted left side down. A 12 mm right lower quadrant trocar was introduced under direct visualization as well as two 5 mm trocars, one in the suprapubic area and one in the left upper quadrant. Brief anterior abdominal exploration was undertaken with findings of multiple dense adhesions in the left lower quadrant between the small bowel and the anterior abdominal wall and the colon and the anterior abdominal wall. I then proceeded to complete an extensive and tedious lysis of adhesions utilizing both cautery dissection and gentle scissor dissection, taking down all the adhesions until the left lower quadrant was clear. There were several loops of small bowel which were caught up in the adhesions which were freed from the left lower quadrant. I did not attempt to lyse the adhesions between this area of small bowel. Once the colon was completely visualized, the tattoos were then visualized. I could easily see the distal tattoo at the rectosigmoid junction. The proximal tattoo, however, was in the transverse colon. An area of appropriately appearing healthy proximal bowel was chosen and this was chosen as my proximal dissection. Cautery was then used to incise the left lateral white line of Toldt until the sigmoid colon and the descending colon was able to be mobilized completely to the midline. The splenic flexure was also grasped and rotated medially and the splenic flexure was taken down until it was completely mobilized. I then proceeded distally until the rectosigmoid junction was reached. At this point, the entirety of the sigmoid colon was able to be completely mobilized to the midline. The colon was gently elevated to the anterior abdominal wall and the medial portion of the mesentery was incised using cautery. The area of my distal resection was then [place] [id number] OPERATIVE REPORT Name: AUTUMN ROBERTSON Room: [address] IN [facility]#: [id number] Admission: 11/14/17 Attend Phys: Faiza Prieto DO Discharge: 11/21/17 Date of : 68 Report #: [id number] chosen just proximal to the tattoo. Using very gentle blunt dissection and cautery with the LigaSure, a window was created in the mesentery. Care was taken to avoid the ureter. At this point, an Endo-MALKA purple load 60 mm stapler was introduced and the colon was clamped and stapled without difficulty. Mesentery was then taken serially using multiple interrupted throws of the LigaSure, again taking care to avoid any underlying structures like the ureter. This completed proximally until I reached the healthy colon. A locking grasper was then placed on the distal portion of the colon. The abdomen was desufflated. The patient was placed supine. Our supraumbilical trocar was removed and the incision was widened using cautery. An William wound protector was introduced. Norwood was then used to grasp our dissected colon and the colon was easily eviscerated from the abdomen. Our healthy proximal margin was easily visualized. This was cleared of any surrounding epiploica or fatty tissue. Bowel was grasped with a Doyen and the diseased colon was transected using a 10 blade. Sigmoid colon was then handed off for specimen. The stump was then gently opened using multiple Allis clamps. The dilators were then passed without difficulty all the way up to a 31. Anvil was then brought into the field and was introduced into the colon. Colon was then closed using a fire of the Endo-MALKA blue load stapler 45 mm. The anvil was then gently popped through just anterior to our staple line. Again, the area of the anvil was completely cleared of any surrounding epiploica or fatty tissues. The stump was then reintroduced into the abdomen. William cap was placed and the abdomen was reinsufflated. The patient was again placed head down and tilted right side down. Camera was reintroduced and our anvil was easily identified. At this point, Dr. Liu went below. The rectum was gently dilated serially using the dilators. The 31 sizer passed without difficulty. The stump was then allowed to fall into the pelvis and the pelvis was filled with saline while Dr. Liu gently introduced air via the sigmoidoscope from below. There was no leak identified. The 31 XL EEA stapler was then introduced without difficulty and the spike was deployed. Our proximal colon was identified with the anvil and this was easily brought down to the area of our rectal stump. Care was taken to assure that the colon was not twisted in any way. The anvil and the spike were then easily connected and the stapler was deployed without difficulty. Stapler was then removed. Sigmoidoscope was reintroduced from below. Gentle pressure was held just above our anastomosis and the pelvis was again filled with fluid and a bubble test was completed with no findings of any leak. The pelvis and the left lower quadrant were then irrigated copiously until clear. Our colon and rectum were then closely inspected. No injuries were identified. The area of our previous dissection from the lysis of adhesions was closely inspected. There were no injuries identified there as well. Again, the small bowel, which had been involved was very closely visualized. The adhesions here were quite dense and I felt that if I proceeded with adhesiolysis, then I would probably injure small bowel. So these adhesions were left in place. Omentum was then brought down over the bowel and the abdomen was desufflated. Kochers were then placed on the fascia of our supraumbilical port. Previously placed 0 [place] [address] OPERATIVE REPORT Name: AUTUMN ROBERTSON Room: [address]#: [id number] Admission: 11/14/17 Attend Phys: Faiza Prieto DO Discharge: 11/21/17 Date of : 68 Report #: [id number] stitch was removed and 3-0 Vicryl stitches were placed in kednoh-[id number]-hixvy fashion with excellent approximation and the fascia. An additional 10 mL of 0.5% Marcaine were injected in the fascia. This wound was closed in a layered fashion using deep and superficial stitches of 3-0 Vicryl in inverted interrupted fashion. All skin wounds were closed with 4-0 Monocryl. A total of 30 mL of 0.5% Marcaine were used to anesthetize the wounds. Wounds were then cleansed and covered with Mastisol, Steri-Strips, 4 x 4s, and a Tegaderm. The patient was then allowed to awaken from anesthesia, was extubated and transported to the recovery room with no further difficulties. Counts were correct x 2 at the conclusion of the case. <ELECTRONICALLY SIGNED> By: Faiza Prieto DO 11/22/17 1756 1524 [id number] Prieto DO /nt
== END 2017-11-21 17:25 | disposition home or self-care (01) | DRG 330 ==
LOC: M.ORTHSURG 06:59 → M.TBA 06:59 → M.PRE 10:40 → M.ORTHSURG 14:27
PROVIDERS: Surgery; ADMIT Surgery
PROC: 0DTN4ZZ Resection of Sigmoid Colon, Percutaneous Endoscopic Approach (ICD-10-PCS; principal; 2017-11-18)
PROC: 0DN83ZZ Release Small Intestine, Percutaneous Approach (ICD-10-PCS; principal; 2017-11-18)
DX: K57.20 Diverticulitis of large intestine with perforation and abscess without bleeding (principal); Z68.41 Body mass index [BMI] 40.0-44.9, adult; N39.0 Urinary tract infection, site not specified; K56.7 Ileus, unspecified; J98.11 Atelectasis; K66.0 Peritoneal adhesions (postprocedural) (postinfection); E87.6 Hypokalemia; E66.01 Morbid (severe) obesity due to excess calories

== ENCOUNTER 2017-11-24 15:17 | Inpatient (IN) | payer OTHER ==
[~2017-11-24] VITALS: Ht 170.2 cm; Wt 103.0 kg
--- NOTE | ~2017-11-24 | PROC ---
[address] [address] PROCEDURE REPORT Name: AUTUMN ROBERTSON Room: [address] IN M.R.#: [id number] Admission: 11/24/17 Attend Phys: Faiza Prieto DO Discharge: 11/29/17 Date of : 68 Report #: [id number] THIS REPORT FOR: //name// For GI report, please see Provation report in Perceptive 7 content. By: [id number] Records Staff MULU /LUCIE
[~2017-11-24 15:17] MED LIST changes: +COLACE100 MG PO; +HYDROCODONE-AP1 EAC6 PO; +MIRALAX17 GM PO
[2017-11-24 16:38] LABS: HEMATOCRIT 26.4 % (42.0-52.0); HEMOGLOBIN 8.6 gm/dL (14.0-18.0); MCH 28.1 pg (26.0-34.0); MCHC 32.7 g/dL (28.0-37.0); MPV 8.1 fl. (7.2-11.1); NUCLEATED RBCS 0 /100WBC; PLATELET COUNT* 383 thou/uL (150-400); RBC 3.07 mil/uL (4.50-6.00); RDW-CV 14.8 % (10.5-14.5)
[2017-11-24 16:43] LABS: WBC 40.1 thou/uL (4.0-11.0)
[2017-11-24 17:07] VITALS: BP 121/60
[2017-11-24 17:12] LABS: ALBUMIN 1.9 g/dL (3.4-5.0); CREATININE 1.1 mg/dL (0.6-1.3); POTASSIUM 3.6 mmol/L (3.5-5.1); TOTAL BILIRUBIN 0.6 mg/dL (<0.1-1.0); TOTAL PROTEIN 6.1 g/dL (6.4-8.2)
--- NOTE | 2017-11-24 17:18 | NUR ---
PATIENT ARRIVED ON UNIT AT 1630 AMBULATORY FROM HIS DOCTORS OFFICE. COMPLETED ADMISSION ASSESSMENT AND HISTORY. NEW IV STARTED, FLUIDS INFUSING. ORIENTED PATIENT TO ROOM, CALL LIGHT, TV. FALL CONTRACT SIGNED. PATIENT DENIES PAIN AT THIS TIME. NPO. NO NAUSEA OR VOMITING. COMPLETED HOURLY ROUNDING. CALL LIGHT WITHIN REACH. WILL CONTINUE TO MONITOR
[2017-11-24 17:19] LABS: ABSOLUTE LYMPHOCYTES 3.2 thou/uL (0.8-5.3); ABSOLUTE MONOCYTES 0.8 thou/uL (0.0-1.2); ABSOLUTE NEUTROPHILS 36.1 thou/uL (1.6-8.1)
[2017-11-24 17:20] LABS: LARGE PLATELETS OCCASIONAL; PLATELET ESTIMATE ADEQUATE
--- NOTE | 2017-11-24 17:58 | NUR ---
PATIENT TRIPPED SEPSIS SCREEN. NURSE SPOKE WITH AND READ REPORT TO DR. GANDHI. PATIENT IS TO REMAIN ON UNIT. ALERT AND ORIENTED X'S 4. VITAL SIGNS STABLE. HEART RATE IS HIGH AT 127. PATIENT REQUESTED O2. NURSE PLACED 2L O2. IV CLEAN, FLUIDS INFUSING. PATIENT DENIES PAIN AT THIS TIME. SCD'S IN PLACE. PASSED BM EARLIER TODAY. VOIDED WITHOUT ISSUE. COMPLETED HOURLY ROUDING. CALL LIGHT WITHIN REACH. WILL CONTINUE TO MONITOR.
[2017-11-24 18:44] LABS: URINE BILIRUBIN NEGATIVE (Negative); URINE BLOOD NEGATIVE (Negative); URINE CLARITY CLEAR; URINE COLOR YELLOW; URINE GLUCOSE-RANDOM NEGATIVE (Negative); URINE KETONES NEGATIVE (Negative); URINE LEUKOCYTES-REFLEX NEGATIVE (Negative); URINE NITRITE-REFLEX NEGATIVE (Negative); URINE PROTEIN TRACE (Negative); URINE SPECIFIC GRAVITY 1.015 (1.005-1.030); URINE UROBILINOGEN 0.2 E.U./dl (0.2-1.0)
[2017-11-24 20:00] VITALS: BP 93/48
[2017-11-24 22:09] LABS: HEMATOCRIT 20.7 % (42.0-52.0)
[2017-11-24 22:13] LABS: HEMOGLOBIN 6.8 gm/dL (14.0-18.0)
[2017-11-25] VITALS (9 sets, daily range): BP systolic 96–109; BP diastolic 49–62
--- NOTE | 2017-11-25 06:09 | NUR ---
PATIENT REMAINS ALERT AND ORIENTED X4 THROUGHOUT SHIFT. VITAL SIGNS STABLE ON 2 LITERS OF OXYGEN. IV PATENT IN THE LEFT AND RIGHT AC INFUSING BLOOD AND PROTONIX PER ORDERS. PATIENT UNABLE TO REST MUCH DUE TO MULTIPLE ANTIBIOTICS AND BLOOD TRANSFUSING. REPOSITIONING SELF IN BED. DENIES PAIN OR NAUSEA. TRANSFERRING WITH STANDBY ASSIST TO THE RESTROOM. ALL LABS AND CULTURES CALLED TO PHYSICIAN. ORDERS RECIEVED. HOURLY ROUNDING COMPLETE. FALL PRECAUTIONS IN PLACE. CALL LIGHT WITHIN REACH. NURING WILL CONTINUE TO MONITOR.
[2017-11-25 10:06] LABS: ABSOLUTE BASOPHILS 0.1 thou/uL (0.0-0.2); ABSOLUTE LYMPHOCYTES 0.9 thou/uL (0.8-5.3); ABSOLUTE MONOCYTES 1.1 thou/uL (0.0-1.2); BASOPHILS 0.4 %; EOSINOPHILS 0.1 %; HEMATOCRIT 23.5 % (42.0-52.0); LYMPHOCYTES 4.5 %; MCH 29.2 pg (26.0-34.0); MCHC 34.1 g/dL (28.0-37.0); MCV 85.6 fL (80.0-100.0); MONOCYTES 5.4 %; MPV 7.8 fl. (7.2-11.1); NUCLEATED RBCS 0 /100WBC; PLATELET COUNT* 360 thou/uL (150-400); POLYS 89.6 %; RBC 2.75 mil/uL (4.50-6.00); RDW-CV 14.5 % (10.5-14.5)
[2017-11-25 10:07] LABS: ABSOLUTE NEUTROPHILS 18.6 thou/uL (1.6-8.1); WBC 20.8 thou/uL (4.0-11.0)
[2017-11-25 10:29] LABS: CALCIUM 7.1 mg/dL (8.5-10.1); CREATININE 0.7 mg/dL (0.6-1.3); POTASSIUM 4.1 mmol/L (3.5-5.1)
--- NOTE | 2017-11-25 18:31 | NUR ---
ALERT AND ORIENTED X4. UP STAND BY ASSIST IN ROOM. IV X2 IS PATENT AND INFUSING. DENIES PAIN AND NAUSEA THROUGHOUT SHIFT. RECIEVED 2 UNITS OF BLOOD THIS AM. HAD EGD THIS EVENING WHICH SHOWED AN ULCER, NEW ORDERS RECIEVED. TOLERATING CLEAR LIQUID DIET. VSS ON 2 L O2. HOURLY ROUNDS HAVE BEEN MAINTAINED WHILE ON UNIT. CALL LIGHT IS WITHIN REACH. FAMILY AT BEDSIDE. NURSING WILL CONTINUE TO MONITOR.
[2017-11-25 19:30] LABS: ABSOLUTE LYMPHOCYTES 0.9 thou/uL (0.8-5.3); BASOPHILS 0.2 %; EOSINOPHILS 0.1 %; HEMATOCRIT 22.7 % (42.0-52.0); HEMOGLOBIN 7.8 gm/dL (14.0-18.0); LYMPHOCYTES 5.8 %; MCH 29.2 pg (26.0-34.0); MCHC 34.2 g/dL (28.0-37.0); MCV 85.5 fL (80.0-100.0); MONOCYTES 6.6 %; MPV 7.5 fl. (7.2-11.1); NUCLEATED RBCS 0 /100WBC; PLATELET COUNT* 372 thou/uL (150-400); POLYS 87.3 %; RBC 2.66 mil/uL (4.50-6.00); RDW-CV 14.7 % (10.5-14.5); WBC 14.9 thou/uL (4.0-11.0)
[2017-11-25 19:35] LABS: CALCIUM 7.4 mg/dL (8.5-10.1); CREATININE 0.8 mg/dL (0.6-1.3); POTASSIUM 3.9 mmol/L (3.5-5.1)
--- NOTE | 2017-11-26 03:57 | NUR ---
ASSUMED PATIENT CARE AT APPROXIMATELY 0000. REPORT GIVEN FROM NIGHT NURSE. PATIENT SLEEPING AT THIS TIME. VSS. AT BESIDE. AGREE WITH ASSESSMENT CHARTED. NURSING TO CONTINUE MONITORING.
[2017-11-26 04:00] VITALS: BP 104/58
[2017-11-26 04:41] LABS: HEMATOCRIT 22.7 % (42.0-52.0); HEMOGLOBIN 7.6 gm/dL (14.0-18.0); MCH 29.2 pg (26.0-34.0); MCHC 33.5 g/dL (28.0-37.0); MPV 8.3 fl. (7.2-11.1); RBC 2.61 mil/uL (4.50-6.00); RDW-CV 14.9 % (10.5-14.5); WBC 12.5 thou/uL (4.0-11.0)
[2017-11-26 05:52] LABS: ALBUMIN 1.6 g/dL (3.4-5.0); CALCIUM 7.5 mg/dL (8.5-10.1); CREATININE 0.8 mg/dL (0.6-1.3); POTASSIUM 3.9 mmol/L (3.5-5.1); TOTAL BILIRUBIN 0.7 mg/dL (<0.1-1.0); TOTAL PROTEIN 5.3 g/dL (6.4-8.2)
--- NOTE | 2017-11-26 07:55 | NUR ---
PATIENT HAS SLEPT QUIETLY DURING THE NIGHT. NO C/O PAIN. VSS ON 2L 02 VIA NASAL CANNULA. IV IN LEFT AC-PROTONIX @ 20ML/HR AND LR @ 150ML/HR. IV IN RIGHT AC- IV ABT'S GIVEN WITHOUT ANY ADVERSE SIDE EFFECTS NOTED. PATIENT IS UP WITH SBA. HOURLY ROUNDS MADE. WILL CONTINUE WITH PLAN OF CARE AND NURSING TO MONITOR.
[2017-11-26 09:00] VITALS: BP 114/61
--- NOTE | 2017-11-26 16:38 | NUR ---
ASSUMED CARE OF PATIENT AFTER MORNING REPORT. ALERT AND ORIENTED X4. ASSESSMENT COMPLETED AND CHARTED. VSS ON 2 LITERS 02. PATIENT HAS HAD NO COMPLAINTS OF PAIN, NAUSEA, OR VOMITING THIS SHIFT. FLUIDS, ANTIBIOTICS, AND PPI ADMISNISTERED ORDERED. PATIENT IS UP AD JODI IN THE ROOM AND WALKS SAFELY FROM THE BED/CHAIR TO THE BATHROOM NEEDED. RESTING COMFORTABLY IN BED AT THIS TIME. HOURLY ROUNDS MAINTAINED, CALL LIGHT WITHIN REACH. NURSING WILL CONTINUE TO MONITOR.
[2017-11-26 17:22] VITALS: BP 116/55
[2017-11-26 20:10] VITALS: BP 116/61
[2017-11-27 04:09] LABS: HEMATOCRIT 25.2 % (42.0-52.0); HEMOGLOBIN 8.4 gm/dL (14.0-18.0); MCH 29.4 pg (26.0-34.0); MCHC 33.6 g/dL (28.0-37.0); MCV 87.4 fL (80.0-100.0); MPV 7.4 fl. (7.2-11.1); RBC 2.88 mil/uL (4.50-6.00); RDW-CV 15.1 % (10.5-14.5); WBC 15.5 thou/uL (4.0-11.0)
[2017-11-27 04:22] LABS: CALCIUM 7.8 mg/dL (8.5-10.1); CREATININE 0.8 mg/dL (0.6-1.3); PHOSPHORUS* 4.1 mg/dL (2.5-4.9); POTASSIUM 3.5 mmol/L (3.5-5.1)
--- NOTE | 2017-11-27 04:44 | NUR ---
PATIENT REMAINS ALERT AND ORIENTED X4 THROUGHOUT SHIFT. VITAL SIGNS STABLE ON ROOM AIR. IV PATENT IN THE RIGHT AC INFUSING AT 150 ML/HR PER ORDERS. MAINTAINED AND TOLERATED FULL LIQUID DIET. TRANSFERS WITH STANDBY ASSIST TO THE RESTROOM. REPOSITIONING SELF IN BED. DENIES PAIN OR NAUSEA. MEDICATIONS GIVEN PER ORDERS. HOURLY ROUNDING COMPLETE. NURSING WILL CONTINUE TO MONITOR.
[2017-11-27 08:00] VITALS: BP 113/68
--- NOTE | 2017-11-27 15:10 | NUR ---
KNOWN FROM PREVIOUS ADMIT. PT.LIVES WITH HIS AND CHILDREN. HIS CAN ASSIST HIM IF NEEDED. HE DOES NOT USE ANY DME. NO HX OF HOME HEALTH. PRIOR TO SURGERY HE WAS INDEPENDENT AND WORKED [employer]. HE IS FEELIN MUCH BETTER TODAY.
[2017-11-27 15:49] VITALS: BP 120/63
--- NOTE | 2017-11-27 17:14 | NUR ---
ALERT AND ORIENTED X4. UP AD JODI DURING AMBULATION. IV IS PATENT AND INFUSING. DENIES NEED FOR PAIN MEDICATION. DENIES NAUSA. TOLERATING REGULAR DIET. VSS ON 2 L O2. HOURLY ROUNDS HAVE BEEN MAINTAINED THROUGHOUT SHIFT CALL LIGHT IS WITHIN REACH. NURSING WILL CONTINUE TO MONITOR.
[2017-11-27 20:00] VITALS: BP 119/65
[2017-11-28 00:10] VITALS: BP 118/64
[2017-11-28 04:13] VITALS: BP 111/62
[2017-11-28 04:52] LABS: HEMATOCRIT 21.7 % (42.0-52.0); HEMOGLOBIN 7.3 gm/dL (14.0-18.0); MCH 29.5 pg (26.0-34.0); MCHC 33.7 g/dL (28.0-37.0); MCV 87.6 fL (80.0-100.0); MPV 7.3 fl. (7.2-11.1); RBC 2.48 mil/uL (4.50-6.00); RDW-CV 15.1 % (10.5-14.5); WBC 12.1 thou/uL (4.0-11.0)
[2017-11-28 05:15] LABS: CALCIUM 7.6 mg/dL (8.5-10.1); CREATININE 0.7 mg/dL (0.6-1.3); MAGNESIUM 2.1 mg/dL (1.8-2.4); PHOSPHORUS* 4.3 mg/dL (2.5-4.9); POTASSIUM 3.9 mmol/L (3.5-5.1)
--- NOTE | 2017-11-28 06:21 | NUR ---
Alert and oriented x 4. Vitals are stable. He is shallow breathing because it hurts. He's been encouraged to do IS frquently this shift. He did have pain med x 1. Midline incision to abdomen is healing well. He's had nothing by mouth since midnight. He did have a shower last evening. He slept on and off.
[2017-11-28 07:45] VITALS: BP 99/52
--- NOTE | 2017-11-28 10:51 | EKG ---
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1970 Requested By: Faiza Prieto Order Number: [id number] Simran MD: Oz Olivo Measurements Intervals [place] Rate: 70 P: 15 AL: 173 QRS: 12 QRSD: 117 T: 29 QT: 429 QTc: 463 Interpretive Statements Sinus rhythm Nonspecific intraventricular conduction delay ST elev, probable normal early repol pattern Compared to ECG 11/16/2017 22:37:39 Sinus tachycardia no longer present Electronically Signed On 11-28-2017 10:50:58 CDT by Oz Olivo [email or web address] <ELECTRONICALLY SIGNED> By: Oz Olivo MD, [facility] 11/28/17 1050 0835 0835 Oz Olivo MD, [facility] /EPI
[2017-11-28 13:06] VITALS: BP 118/57
[2017-11-28] MEDS ORDERED: PROTONIX40 M1 PO (13:28)
[2017-11-28] MEDS ORDERED: CARAFATE 11 GM/10 M1 PO (13:28)
--- NOTE | 2017-11-28 17:57 | NUR ---
ALERT AND ORIENTED X4. UP AD JODI IN ROOM. IV IS PATENT AND SALINE LOCKED. DENIES PAIN AND NAUSEA. TOLERATING REGULAR DIET. EGD DONE TODAY AND TO BE REPEATED IN 2 MONTHS. PATIENT WAS GOING TO DC THIS EVENING, BUT OXYGEN LEVELS WERE LOW AND NEED TO WEAN OFF OXYGEN PRIOR TO DISCHARGE. VSS ON 3L O2. HOURLY ROUNDS HAVE BEEN MAINTAINED THROUGHOUGH SHIFT. CALL LIGHT IS WITHIN REACH. NURSING WILL CONTINUE TO MONITOR.
--- NOTE | 2017-11-28 18:22 | NUR ---
PATIENT ARRIVED TO UNIT AT 1530. ALERT AND ORIENTED X4. PATIENT HAS BEEN VERY DROWZY SINCE ARRIVING TO UNIT. IV IS PATENT AND INFUSING. PAIN BEING MANAGED WITH IV MEDICATION GIVEN IN PACU. DENIES NAUSEA. PATIENT HAS BEEN ORIENTED TO ROOM. HOURLY ROUNDS HAVE BEEN MAINTAINED SINCE ARRIVING TO UNIT. VSS ON 3L O2. CAP-NO IN PLACE. 3D HIDGE BRACE IN PLACE LOCKED IN EXTENSION. CALL LIGHT IS WITHIN REACH. NURSING WILL CONTINUE TO MONITOR.
[2017-11-28 20:30] VITALS: BP 108/60
[2017-11-29 02:58] LABS: HEMATOCRIT 22.9 % (42.0-52.0); HEMOGLOBIN 7.8 gm/dL (14.0-18.0); MCH 29.5 pg (26.0-34.0); MCHC 34.1 g/dL (28.0-37.0); MCV 86.6 fL (80.0-100.0); MPV 7.1 fl. (7.2-11.1); NUCLEATED RBCS 0 /100WBC; PLATELET COUNT* 476 thou/uL (150-400); RBC 2.65 mil/uL (4.50-6.00); RDW-CV 15.4 % (10.5-14.5); WBC 9.5 thou/uL (4.0-11.0)
[2017-11-29 03:23] LABS: CALCIUM 7.5 mg/dL (8.5-10.1); CREATININE 0.7 mg/dL (0.6-1.3); MAGNESIUM 2.2 mg/dL (1.8-2.4); PHOSPHORUS* 4.4 mg/dL (2.5-4.9); POTASSIUM 3.9 mmol/L (3.5-5.1)
[2017-11-29 04:45] VITALS: BP 109/59
--- NOTE | 2017-11-29 05:50 | NUR ---
PATIENT ALERT AND ORIENTED X 4. VITALS STABLE. ON 2L OF OXYGEN. IS ENCOURAGED. UP INDEPENDENTLY. IV PATENT, SALINE LOCKED. DENIES PAIN AND NAUSEA. AT BEDSIDE. ENCOURAGED TO COUGH AND DEEP BREATH. PLANS TO BE DISCHARGED HOME TODAY. HOURLY ROUNDS. NURSING WILL CONTINUE TO MONITOR.
[2017-11-29 05:51] LABS: ABSOLUTE MONOCYTES 1.1 thou/uL (0.0-1.2); ABSOLUTE NEUTROPHILS 7.3 thou/uL (1.6-8.1); ANISOCYTOSIS 1+; PLATELET ESTIMATE INCREASED
[2017-11-29 05:52] LABS: HYPOCHROMASIA 1+; POLYCHROMASIA Occasional; TOXIC GRANULATION 1+
[2017-11-29 08:00] VITALS: BP 111/50
[2017-11-29 12:30] VITALS: BP 111/50
[2017-11-29 12:46] VITALS: BP 111/50
[2017-11-29 12:51] VITALS: BP 111/50
--- NOTE | 2017-11-29 14:08 | NUR ---
PATIENT DISCHARGED FROM UNIT AT 1400. ALERT AND ORIENTED X 4. VITAL SIGNS STABLE ON ROOM AIR. UP AD JODI IN ROOM AND AMBULATED IN THE HALLWAY, KEEPING O2 SATS ABOVE 90% WITHOUT OXYGEN SUPPORT NEEDED. IV DISCONTINUED. DENIES PAIN AND NAUSEA. DISCHARGE INSTRUCTIONS AND MEDICATION INFORMATION GIVEN TO PATIENT. LEFT WITH ALL BELONGINGS. PATIENT LEFT WITH VIA CAR.
[2017-11-29 14:10] VITALS: BP 111/50
--- NOTE | 2017-12-01 16:57 | CON ---
[address] [address] CONSULTATION Name: AUTUMN ROBERTSON Room: [address] IN M.R.#: [id number] Admission: 11/24/17 Attend Phys: Faiza Prieto DO Discharge: 11/29/17 Date of : 68 Report #: [id number] THIS REPORT FOR: //name// CC: Faiza Prieto DO [facility] DATE OF SERVICE: 11/25/2017 REFERRING PHYSICIAN: Faiza Prieto DO REASON FOR CONSULTATION: Acute anemia with history of melena. IMPRESSION: 1. Acute anemia associated with symptomatic melena -- evaluate for upper gastrointestinal tract source for the same. 2. Status post recent sigmoid resection for complicated diverticulitis with postoperative ileus requiring NG tube placement. 3. Acute anemia with significant drop in his hemoglobin since discharge. 4. Orthostatic hypotension secondary to the same. RECOMMENDATIONS: 1. I discussed the patient's case with Dr. Prieto and agree with plans for upper endoscopy today. I have discussed the plans with the patient as well as and they are agreeable to see. 2. Make further recommendations thereafter. HISTORY OF PRESENT ILLNESS: The patient is a pleasant 47-year-old white male who underwent sigmoid resection on November 14 of this year for recurrent bouts of diverticulitis and complicated diverticulitis. He was discharged home, doing well, apparently on November 21 and without any complaints. During his hospital stay, he did have an NG tube in place to help with postoperative ileus and at one point had some coffee-ground material noted from the same, but it was not thought to be hemodynamically significant. His hemoglobin is remaining stable. However, when he reported to Dr. Prieto's office on the day of admission, he was hypotensive and pale. He received some IV fluids and is much improved. His hemoglobin upon discharge was 12.2. When he came here, it was down into the 8s. He denies any complaints of any dysphagia, odynophagia, but does not want to eat. He has had some black tarry stools over the last few days. He is admitted to the hospital for further evaluation and treatment. ALLERGIES: SHELLFISH AND PENICILLIN. MEDICATIONS: Hydrocodone, docusate and MiraLax. PAST MEDICAL HISTORY: Remarkable for recent sigmoid [place] [address] CONSULTATION Name: AUTUMN ROBERTSON Room: [address]#: [id number] Admission: 11/24/17 Attend Phys: Faiza Prieto, DO Discharge: 11/29/17 Date of : 68 Report #: [id number] previous vasectomy, nasal septal repair as well. SOCIAL HISTORY: The patient is , does not smoke or drink. FAMILY HISTORY: Negative. PHYSICAL EXAMINATION: GENERAL: Revealed a pale 47-year-old male who is awake and alert. CARDIOPULMONARY: Revealed tachycardic rate and rhythm. LUNGS: Clear. ABDOMEN: Soft. His incision appears to be dry and intact. Slightly bloated and tympanitic. No rebound or guarding was noted. LABORATORY TESTS: From the 25th revealed a white count of 40.1, hemoglobin 8.6, platelet count 383,000, MCV is 86 and RDW is 14.8. Sodium 135, potassium 3.6, chloride 101, bicarbonate is 24. His BUN is 49, creatinine 1.1. Total bilirubin 0.6, alkaline phosphatase 72, AST 14, ALT 18. His albumin is 1.9. Abdominal series revealed some dilated loops of small bowel of uncertain significance and etiology. represented ileus. DISCUSSION: At the present time, I am concerned the patient has fairly significant GI bleed. We will proceed with upper endoscopy today and make further recommendations thereafter. I have discussed the plans with the patient as well as and they are agreeable to the same. I am not sure unfortunately who is the admitting doctor but I am not sure who is his primary doctor is. We will have to make sure we get eventually of this dictation as well. <ELECTRONICALLY SIGNED> By: Renato Pugh DO 12/01/17 1657 [id number] Pugh DO /nt
--- NOTE | 2017-12-25 16:11 | PATH ---
[address] [address] PATHOLOGY RPT PROCEDURE Name: AUTUMN ROBERTSON Room: [address] IN M.R.#: [id number] Admission: 11/24/17 Date of : 68 Discharge: 11/29/17 Report #: [id number] Path Case #: [id number] [facility] Accession Number: [id number] . 01 Material submitted: . PART A: DUODENAL BX PART B: GASTRIC BX . 01 Clinical history: . None provided . 02 Diagnosis: A. Duodenal biopsy: - Mild nonspecific active duodenitis, negative for granulomas, viral inclusions and dysplasia. . B. Gastric biopsy: - Mild nonspecific chronic gastritis, negative for Helicobacter pylori organisms, granulomas and dysplasia. (ANA:[place]; 12/01/2017) . . Special stain on B: H. pylori immuno QMS/12/01/2017 . 02 Electronically signed: . Wiley Ingram MD, Pathologist NPI- [id number] . 01 Gross description: . A. Received in formalin labeled "Autumn Robertson, duodenal BX," is a single segment of singh soft tissue measuring 0.3 cm in maximum dimension. The specimen is entirely submitted in cassette A1. . B. Received in formalin labeled "Autumn Robertson, gastric BX," are 2 segments of singh soft tissue measuring 0.7 x 0.2 x 0.2 cm in aggregate dimensions and ranging from 0.3 to 0.4 cm in maximum dimension. The specimen is submitted entirely in cassette B1. (TSD; 11/28/2017) TOB/TOB . 02 Pathologist provided ICD-10: K29.80, K29.50 . 02 CPT . 397576, 516619, R44740 Performed at: [address] [address] PATHOLOGY RPT PROCEDURE Name: AUTUMN ROBERTSON Room: [address]#: [id number] Admission: 11/24/17 Date of : 68 Discharge: 11/29/17 Report #: [id number] Path Case #: [id number] [address] [id number] MD Keyur Ramos MD Phone: [phone] Performed at: [address] [place] [id number] MD Wiley Ingram MD Phone: [phone]
== END 2017-11-29 14:00 | disposition home or self-care (01) | DRG 380 ==
LOC: M.ORTHSURG 15:17
PROVIDERS: Internal Medicine Gastroenterology; ADMIT Surgery
PROC: 0DJ08ZZ Inspection of Upper Intestinal Tract, Via Natural or Artificial Opening Endoscopic (ICD-10-PCS; principal; 2017-11-25)
PROC: 30233N1 Transfusion of Nonautologous Red Blood Cells into Peripheral Vein, Percutaneous Approach (ICD-10-PCS; principal; 2017-11-25)
PROC: 0DB68ZX Excision of Stomach, Via Natural or Artificial Opening Endoscopic, Diagnostic (ICD-10-PCS; 2017-11-28)
DX: K22.11 Ulcer of esophagus with bleeding (principal); E43 Unspecified severe protein-calorie malnutrition; K57.92 Diverticulitis of intestine, part unspecified, without perforation or abscess without bleeding; D62 Acute posthemorrhagic anemia; K25.4 Chronic or unspecified gastric ulcer with hemorrhage; K92.1 Melena; D64.9 Anemia, unspecified; K44.9 Diaphragmatic hernia without obstruction or gangrene; E86.0 Dehydration; E66.9 Obesity, unspecified; K31.89 Other diseases of stomach and duodenum; K26.9 Duodenal ulcer, unspecified as acute or chronic, without hemorrhage or perforation; I95.1 Orthostatic hypotension; Z88.0 Allergy status to penicillin; Z91.013 Allergy to seafood; Z87.440 Personal history of urinary (tract) infections; Z68.35 Body mass index [BMI] 35.0-35.9, adult

== ENCOUNTER 2017-11-30 11:30 | Inpatient (IN) | payer OTHER ==
[~2017-11-30] VITALS: Ht 170.2 cm; Wt 106.6 kg
[2017-11-30] VITALS (13 sets, daily range): BP systolic 94–129; BP diastolic 42–64
[~2017-11-30 11:30] MED LIST changes: +CARAFATE 11 GM/10 M1 PO; +PROTONIX40 M1 PO
[2017-11-30 12:02] LABS: MCH 29.2 pg (26.0-34.0); MCHC 33.1 g/dL (28.0-37.0); MCV 88.3 fL (80.0-100.0); MPV 7.1 fl. (7.2-11.1); NUCLEATED RBCS 0 /100WBC; PLATELET COUNT* 437 thou/uL (150-400); RBC 1.97 mil/uL (4.50-6.00); RDW-CV 15.5 % (10.5-14.5); WBC 12.7 thou/uL (4.0-11.0)
[2017-11-30 12:12] LABS: APTT 22.9 Seconds (25.0-31.3); INR 1.2; PROTIME 11.3 Seconds (9.20-11.50)
[2017-11-30 12:14] LABS: HEMATOCRIT 17.4 % (42.0-52.0); HEMOGLOBIN 5.8 gm/dL (14.0-18.0)
[2017-11-30 12:20] LABS: ANION GAP 5 mmol/L (7-16); BUN 16 mg/dL (7-18); CALCIUM 7.1 mg/dL (8.5-10.1); CHLORIDE 109 mmol/L (98-107); CO2 28 mmol/L (21-32); CREATININE 0.9 mg/dL (0.6-1.3); GLUCOSE 144 mg/dL (70-99); POTASSIUM 3.7 mmol/L (3.5-5.1); SODIUM 142 mmol/L (136-145)
[2017-11-30 12:27] LABS: ALBUMIN 1.6 g/dL (3.4-5.0); ALKALINE PHOSPHATASE 55 U/L (46-116); LIPASE 416 U/L (73-393); SGOT 17 U/L (15-37); SGPT 30 U/L (30-65); TOTAL BILIRUBIN 0.3 mg/dL (<0.1-1.0); TOTAL PROTEIN 4.9 g/dL (6.4-8.2); TROPONIN-I LEVEL <0.06 ng/mL (<0.06)
[2017-11-30 12:47] LABS: ABSOLUTE LYMPHOCYTES 0.8 thou/uL (0.8-5.3); ABSOLUTE NEUTROPHILS 11.2 thou/uL (1.6-8.1); LYMPHOCYTES 6.4 %; POLYS 87.8 %
[2017-11-30 12:48] LABS: ABSOLUTE MONOCYTES 0.7 thou/uL (0.0-1.2); BASOPHILS 0.2 %; EOSINOPHILS 0.1 %; MONOCYTES 5.5 %
--- NOTE | 2017-11-30 14:00 | NUR ---
PATIENT ARRIVED TO ICU FROM CT WITH ER STAFF. PATIENT VITALS WNL AT THIS TIME, BLOOD PRESSURE SOFT BUT NORMAL. BLOOD IS READY, RN SENT TO OBTAIN BLOOD FOR HEMOGLOBIN OF 5.8. NO PAIN, NAUSEA OR SHORTNESS OF AIR. WILL GIVE 2 UNITS OF BLOOD AND THEN RECHECK H&H. SUGERY AND GI CONSULTED. WILL CONTINUE PROTONIX GTT AND WAIT FOR FURTHER ORDERS FROM SPECILATIES. RADIO HOST IN PLACE, BED IN LOWEST POSITION, CALL LIGHT IN REACH. FAMILY PRESENT.
[2017-11-30 18:14] LABS: URINE BILIRUBIN NEGATIVE (Negative); URINE BLOOD NEGATIVE (Negative); URINE CLARITY CLEAR; URINE COLOR YELLOW; URINE GLUCOSE-RANDOM NEGATIVE (Negative); URINE KETONES NEGATIVE (Negative); URINE LEUKOCYTES-REFLEX NEGATIVE (Negative); URINE NITRITE-REFLEX NEGATIVE (Negative); URINE PROTEIN NEGATIVE (Negative); URINE UROBILINOGEN 0.2 E.U./dl (0.2-1.0)
[2017-11-30 18:16] LABS: HEMATOCRIT 19.9 % (42.0-52.0); HEMOGLOBIN 6.7 gm/dL (14.0-18.0)
--- NOTE | 2017-11-30 18:48 | NUR ---
PATIENT IS SOMEWHAT PROGRESSING TOWARDS GOALS. H&H REDRAWN AND HEMOGLOBIN DIDNT RISE MUCH. DR STAUFFER AND DR GANDHI CALLED AND REPORTED RESULTS. XIOMY ORDERED 2 MORE UNITS TO BE TRANSFUSED. DR GANDHI DOES NOT FEEL A TAGGED RBC SCAN IS NECESSARY AT THIS TIME. PATIENT COLOR IS MUCH BETTER SINCE ADMIT AFTER ALREADY RECEIVING 2 UNTIS OF RBC. IF BLEEDING PERSISTS WILL FOLLOW UP WITH GI. NO PAIN, NAUSEA OR SHORTNESS OF AIR REPORTED AT THIS TIME. VITALS REMAIN WNL, PROTONIX GTT STILL INFUSING. BED IN LOWEST POSITION, CALL LIGHT IN REACH,
[2017-12-01] VITALS (23 sets, daily range): BP systolic 87–117; BP diastolic 40–60
[2017-12-01 00:33] LABS: HEMOGLOBIN 8.1 gm/dL (14.0-18.0); MCH 29.5 pg (26.0-34.0); MCHC 33.8 g/dL (28.0-37.0); MCV 87.4 fL (80.0-100.0); MPV 6.9 fl. (7.2-11.1); RBC 2.75 mil/uL (4.50-6.00); RDW-CV 14.9 % (10.5-14.5); WBC 14.1 thou/uL (4.0-11.0)
[2017-12-01 00:52] LABS: APTT 26.7 Seconds (25.0-31.3); INR 1.1; PROTIME 11.1 Seconds (9.20-11.50)
[2017-12-01 04:33] LABS: HEMATOCRIT 23.1 % (42.0-52.0); HEMOGLOBIN 7.9 gm/dL (14.0-18.0); MCH 29.8 pg (26.0-34.0); MCHC 34.1 g/dL (28.0-37.0); MCV 87.5 fL (80.0-100.0); MPV 6.8 fl. (7.2-11.1); RBC 2.64 mil/uL (4.50-6.00); RDW-CV 14.9 % (10.5-14.5); WBC 12.8 thou/uL (4.0-11.0)
[2017-12-01 05:05] LABS: ALBUMIN 1.6 g/dL (3.4-5.0); CALCIUM 7.2 mg/dL (8.5-10.1); CREATININE 0.8 mg/dL (0.6-1.3); PHOSPHORUS* 3.2 mg/dL (2.5-4.9); TOTAL BILIRUBIN 0.6 mg/dL (<0.1-1.0); TOTAL PROTEIN 4.9 g/dL (6.4-8.2)
--- NOTE | 2017-12-01 07:35 | NUR ---
ASSUMED CARE OF PT AT 0200; PT REMAINS ON PROTONIX GTT FOR ACTIVE GI BLEED. 1 UNIT OF PRBCs ADMINISTERED BY SARINA ARCINIEGA, PT APPEARS TACHYPNEIC, DENIES ANY PAIN OR DISCOMFORT. PT STATES. "I JUST FEEL REALLY WEAK..." PT ABLE TO USE URINAL, REPORTS A BLOODY BM EARLIER ON THIS SHIFT. IV ABX INFUSING PER CENTRAL LINE, REGLAN IV PUSH ADMIN PER ORDERS. TRACING NSR ON MONITOR, HR IN THE 60s-70s. CALL LIGHT IN REACH
--- NOTE | 2017-12-01 09:45 | EKG ---
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[place] : 1970 Requested By: Amadeo Mendez Order Number: [id number] MD: Oz Olivo Measurements Intervals [place] Rate: 108 P: 4 [place]: 133 QRS: 29 QRSD: 106 T: 28 QT: 343 QTc: 460 Interpretive Statements Sinus tachycardia RSR' in V1 or V2, probably normal variant Compared to ECG 11/28/2017 08:35:36 RSR' in V1 or V2 now present Sinus rhythm no longer present Electronically Signed On 12-01-2017 9:45:39 CDT by Oz Olivo [email or web address] <ELECTRONICALLY SIGNED> By: Oz Olivo MD, FAC 12/01/17 0945 1144 1144 Oz Olivo MD, [facility] /EPI
--- NOTE | 2017-12-01 11:03 | NUR ---
PT AFEBRILE. 1 EPISODE OF DARK LIQUID STOOL. GI SHOWED STOOL. VSS. PT REPORTS FEELING WEAK. PT NPO FOR IR ABCESS DRAINING TODAY.
--- NOTE | 2017-12-01 13:00 | NUR ---
URINARY CATHETER INSTERTED PER DR'S ORDERS. PT TO GO TO IR TO GET ABCESS DRAINED.
--- NOTE | 2017-12-01 18:47 | NUR ---
PT CLEAR LIQUIDS PER GI. PT REQUESTED PAIN MEDICATION 1 TIME THIS SHIFT AFTER IR PROCEDURE. PT C/O OF PAIN AT SITE OF DRAIN. SEE KEPT IN PLACE PER DR JOE. PER GI PT TO BE MEDICALLY MANAGED. PT DID NOT EXPERIENCE ANY NAUSEA OR VOMITING THIS SHIFT. ONLY 1 EPISODE OF DARK BLOOD LIQUID STOOL. PT TELE STATUS. AT BEDSIDE AND EDUCATED ON PLAN OF CARE.
--- NOTE | 2017-12-01 22:38 | NUR ---
Report called to Mabel ARCINIEGA on 2W. Pt transferred per bed. VSS. with patient.
[2017-12-02 00:54] LABS: HEMATOCRIT 22.1 % (42.0-52.0); HEMOGLOBIN 7.5 gm/dL (14.0-18.0)
[2017-12-02 03:30] VITALS: BP 104/51
--- NOTE | 2017-12-02 03:44 | NUR ---
RECEIVED REPORT AND ASSUMED CARE AT 2250. PT TRANSFERED FROM ICU TO ROOM 223. VITAL SIGNS STABLE, CARDIAC MONITORING IN PLACE. PT DENIES ANY COMPLAINTS OF PAIN. ASSESSMENT COMPLETED CHARTED. PT UP WITH ASSIST TO BSC. DISCUSSED PLAN OF CARE WITH PT, VERBALIZED UNDERSTANDING. PT SCHEDULED FOR REPEAT ABD CT 12/02/17. PT TO START CONTRAST AT 0630. PT HAD 1 DARK STOOL. HOURLY ROUNDING COMPELTED, ALL NEEDS MET. WILL CONTINUE TO MONITOR FOR REMAINDER OF THE SHIFT
[2017-12-02 08:00] VITALS: BP 96/53
--- NOTE | 2017-12-02 08:15 | CON ---
[address] [address] CONSULTATION Name: AUTUMN ROBERTSON Room: [address] IN .R.#: [id number] Admission: 11/30/17 Attend Phys: Ashley Spann Discharge: Date of : 68 Report #: [id number] THIS REPORT FOR: //name// CC: Freeman Cabrallo DATE OF SERVICE: 12/01/2017 INFECTIOUS DISEASE CONSULTATION HISTORY OF PRESENT ILLNESS: Chart reviewed, patient examined. This is a 47-year-old gentleman who I actually saw in July 2017. He has longstanding issues with diverticular abscess. At that point, underwent percutaneous drainage. He was readmitted in October 2017, there was recurrent diverticulitis, underwent laparoscopic sigmoid resection with primary anastomosis, mobilization of splenic flexure on 11/14/2017. He was discharged roughly a week later. In the postop visit, he was found to have urinary tract infection. He was referred for admission due to progressive weakness with some hypotension, tachycardia, some black stools, felt to have a gastrointestinal hemorrhage. He underwent EGD, found to have gastric ulcer. Shortly after being discharged saying he felt fairly well, he was readmitted with hematemesis. Reimaging suggested intra-abdominal abscess, scheduled to undergo percutaneous drainage. He was empirically started on meropenem. He is in moderate distress at this point. He has not had any significant temperature elevation. White count was slightly elevated. He was profoundly anemic with hemoglobin of 5.8. ALLERGIES: PENICILLIN, SHELLFISH. CURRENT MEDICINES: Includes sucralfate, meropenem, acetaminophen, morphine, pantoprazole, metoclopramide, ondansetron. PAST MEDICAL HISTORY: Primarily as above. PAST SURGICAL HISTORY: Nasal septal repair, vasectomy. SOCIAL HISTORY: Nonsmoker, no ethanol. FAMILY HISTORY: Noncontributory. REVIEW OF SYSTEMS: As above. PHYSICAL EXAMINATION: GENERAL: He appears ill, not overtly toxic, not in severe distress, although moderate. He is generally lucid. VITAL SIGNS: Temperature 98.2, pulse 79, respirations 18, blood pressure is 111/59. [place] [address] CONSULTATION Name: AUTUMN ROBERTSON Room: [address]#: [id number] Admission: 11/30/17 Attend Phys: Ashley Spann Discharge: Date of : 68 Report #: [id number] SKIN: Warm and somewhat pale. HEENT: Unremarkable. NECK: Supple. LUNGS: Diminished breath sounds. HEART: Regular. I do not appreciate any murmur. ABDOMEN: Mildly distended, soft. There are no overt peritoneal signs. GENITOURINARY: Deferred. RECTAL: Deferred. LABORATORY DATA: Prealbumin of 13.4. Electrolytes from this morning, sodium 142, potassium 4.0, chloride 110, bicarbonate is 29, anion gap of 3, BUN and creatinine 15 and 0.8, glucose of 109. LFTs unremarkable. Albumin is 1.6, total protein of 4.9, estimated GFR of 103. CBC: White count of 12.8, hemoglobin 5.8 and hematocrit 23.1, platelets of 286. PT of 11.1, INR of 1.1. Fibrinogen of 395. Urinalysis unremarkable. CT abdomen and pelvis, postsurgical changes of sigmoid resection, large mixed gas and fluid collection within the lower abdominal pelvis, measures 6.7 x 6.2 x 14.7. There is question of intra-abdominal abscess as well as a small subcapsular fluid collection, suspected hematoma. ASSESSMENT: Intra-abdominal abscess and plan is for percutaneous drainage. We will continue empiric therapy. Presuming his enteric-related edita, certainly raises question of compromise of the site with a leak, would suspect polymicrobial etiology. Meropenem should give us good coverage certainly in the setting of PENICILLIN allergy. We will be monitoring for evidence of hypersensitivities. We will follow. Monitor for evidence of nosocomial related infectious complications. <ELECTRONICALLY SIGNED> By: Deric Beckham MD 12/02/17 0815 [id number] Beckham MD /nt
[2017-12-02 12:00] VITALS: BP 90/54
--- NOTE | 2017-12-02 14:10 | NUR ---
Pt is A&O. Resides at home with his . Normally active and independent. Recently dc from hospital, readmitted for GI Bleed. No DME. No hx of HH or SNF. Goal is to return home at dc. Following.
[2017-12-02 16:00] VITALS: BP 98/53
--- NOTE | 2017-12-02 17:46 | NUR ---
PT IS ALERT AND ORIENTED X4 PT IS IN PAIN BUT DOES NOT LIKE PAIN MEDS GAVE PT MORPHINE AND FENTANYL BUT DILUTED IT AND PUSHED IT VERY SLOWLY PT STATED THIS HELPED A LOT WITH THE PAIN AND NOT GET THAT FEELING OF 'HIGH' THAT MAKES HIM FEEL BAD AND FAMILY AT BEDSIDE BMSX2 DARK AND BLACK LOOSE WITH THE CERTAIN 'SMELL' LIKE GI BLEED HGB IS NOW 7.8 PT IS PALE AND BECOMES SWEATY WHEN IN PAIN SURGERY PAGED AGAIN THIS EVENING TO SEE IF HE CAN HAVE AT LEAST SIPS OF WATER CT CAME BACK COPY GIVEN TO PER REQUEST CALL LIGHT IN REACH USES APPROPRIATELY
[2017-12-02 20:00] VITALS: BP 119/53
--- NOTE | 2017-12-02 23:57 | NUR ---
RESTING IN BED. CONT. PROTONIX DRIP AT 20 ML PER HOUR. ABX WITHOUT ADVERSE REACTION. DENIES PAIN OR DISCOMFORT. NO SIGN OF DISTRESS CONT. WITH PLAN OF CARE. SURG TO SEE IN AM ABOUT CT OF ABD DONE TODAY
[2017-12-02 23:58] VITALS: BP 121/61
[2017-12-03 04:00] VITALS: BP 124/66
[2017-12-03 05:26] LABS: HEMATOCRIT 22.1 % (42.0-52.0); HEMOGLOBIN 7.5 gm/dL (14.0-18.0); MCHC 33.8 g/dL (28.0-37.0); MCV 88.6 fL (80.0-100.0); MPV 7.7 fl. (7.2-11.1); NUCLEATED RBCS 0 /100WBC; PLATELET COUNT* 226 thou/uL (150-400); RDW-CV 15.1 % (10.5-14.5); WBC 6.6 thou/uL (4.0-11.0)
[2017-12-03 05:48] LABS: CALCIUM 7.6 mg/dL (8.5-10.1); CREATININE 0.6 mg/dL (0.6-1.3); PHOSPHORUS* 3.8 mg/dL (2.5-4.9); POTASSIUM 3.7 mmol/L (3.5-5.1)
--- NOTE | 2017-12-03 06:25 | NUR ---
PATIENT HGB 7.5, UNCHANGED FROM YESTERDAY AM. DENIES COMPLAINTS, OF PAIN, SOA. CONT. TO MONITOR.
[2017-12-03 06:31] LABS: ABSOLUTE EOSINOPHILS 0.1 thou/uL (0.0-0.7); ABSOLUTE LYMPHOCYTES 0.7 thou/uL (0.8-5.3); ABSOLUTE MONOCYTES 0.3 thou/uL (0.0-1.2); ABSOLUTE NEUTROPHILS 5.5 thou/uL (1.6-8.1); ANISOCYTOSIS 1+; PLATELET ESTIMATE ADEQUATE; POIKILOCYTOSIS 1+
[2017-12-03 07:46] VITALS: BP 101/59
--- NOTE | 2017-12-03 08:26 | NUR ---
ASSUMED CARE OF PT THIS AM AROUND 0715- DIET KITCHEN COOK IN PLACE ORDERED, TRACING SR- UPON ASSESSMENT PT NOTED TO BE RESTING IN BED, WATCHING TV, AT SIDE- PT A&O X4- CONTINENT OF BOWEL, SEE IN PLACE D/D CLEAR YELLOW URINE- LCTA, RESP EVEN AND UN-LABORED- VSS, O2 SAT 95% ON RA- ABDOMEN SOFT/ROUND/NON-TENDER, BS X4 QUADS- DRAIN NOTED TO MID LOWER LEFT PELVIC REGION INTACT AND D/D BROWN LIQUID- RIGHT IJ NOTED INTACT, IV FLUIDS ANDS AND PROTONIX INFUSING PRESCIBED- PT NPO WITH EXCEPTION OF CARAFATE PER SURGERY- PT EDUCATED ON IMPORTANCE OF BEING UP AND MOVING MUCH POSSIBLE WITH PLANS TO INCREASE ACTIVITY THIS SHIFT- DENIES ANY C/O PAIN/DISCOMFORT AT THIS TIME- CALL LIGHT AND PERSONAL BELONGINGS WITH IN REACH- HOURLY ROUNDS IN PLACE R/T SAFETY/NEEDS- ALL NEEDS MET AT THIS TIME-WC
[2017-12-03 12:00] VITALS: BP 126/68
[2017-12-03 15:33] VITALS: BP 117/59
--- NOTE | 2017-12-03 18:23 | NUR ---
PT BRISA RESTING IN BED, FAMILY AT SIDE VISITING- UTILITY MAINTENANCE WORKER IN PLACE ORDERED, TRACING SR- RIGHT IJ IN PLACE AND CONTINUED , IVF/PROTONICS CONTINUED PRESCIBED- PRN FENT GIVEN X1 THIS SHIFT FOR LEFT UPPER QUAD PAIN AT 1031, PT REPORTS MEDICATION TO BE EFFECTIVE- PRN TRAMADOL GIVEN X1 AT 1711, PT REPORTS MEDICATION TO BE EFFECTIVE- PT DRESSING OVER PELVIC DRAIN SIGHT CHANGED THIS SHIFT R/T GETTING WET WITH SHOWER- PT UP TO CHAIR THIS SHIFT TOLERATING WELL- DIET ADVANCED TO LIQUIDS WITH SIPS, PT REPORTS TO BE GOING SLOWLY INSTRUCTED, REPORTS TO GET FULL FAST BUT TOLERATING- SEE D/C'D THIS SHIFT PER AT 1500 THIS SHIFT- PT REPORTS TO HAVE URINATED POST REMOVAL WITH NO PROBLEMS REPORTED- REPORTS TO HAVE HAD SMALL BM THIS SHIFT- CALL LIGHT AND PERSONAL BELONGINGS WITH IN REACH- ALL NEEDS MET AT THIS TIME-[facility]
[2017-12-03 20:00] VITALS: BP 127/62
[2017-12-04] VITALS: BP 114/65
[2017-12-04 04:00] VITALS: BP 107/57
[2017-12-04 06:10] LABS: ABSOLUTE EOSINOPHILS 0.1 thou/uL (0.0-0.7); ABSOLUTE LYMPHOCYTES 0.6 thou/uL (0.8-5.3); ABSOLUTE MONOCYTES 0.5 thou/uL (0.0-1.2); ABSOLUTE NEUTROPHILS 6.2 thou/uL (1.6-8.1); BASOPHILS 0.2 %; EOSINOPHILS 0.7 %; HEMATOCRIT 22.1 % (42.0-52.0); HEMOGLOBIN 7.5 gm/dL (14.0-18.0); LYMPHOCYTES 8.1 %; MCH 29.6 pg (26.0-34.0); MCHC 33.7 g/dL (28.0-37.0); MPV 7.2 fl. (7.2-11.1); NUCLEATED RBCS 0 /100WBC; PLATELET COUNT* 231 thou/uL (150-400); RBC 2.52 mil/uL (4.50-6.00); WBC 7.3 thou/uL (4.0-11.0)
--- NOTE | 2017-12-04 06:27 | NUR ---
PATIENT HAS SLEPT MOST OF THE NIGHT. DENIES ANY FURTHER COMPLAINTS OF PAIN OR DISCOMFORT. CONT. PROTONIX DRIP AT 20ML HOUR. CONT. IV ABX. CONT. TO MONITOR.
[2017-12-04 06:29] LABS: CALCIUM 7.7 mg/dL (8.5-10.1); CREATININE 0.4 mg/dL (0.6-1.3); MAGNESIUM 2.1 mg/dL (1.8-2.4); PHOSPHORUS* 3.5 mg/dL (2.5-4.9); POTASSIUM 3.6 mmol/L (3.5-5.1)
[2017-12-04 07:50] VITALS: BP 116/60
--- NOTE | 2017-12-04 09:00 | NUR ---
ASSUMED CARE OF PT THIS AM AROUND 0715- ENVIRONMENTAL SERVICES TECH IN PLACE ORDERED, TRACING SR-UPON ASSESSMENT PT NOTED TO BE RESTING IN BED, WATCHING TV- PT A&O X4- CONTINENT OF BOWEL AND BLADDER, USING URINAL- ASSIST X1 WITH TRANSFERS- LCTA, RESP EVEN AND UN-LABORED- VSS,O2 SAT 97% ON 2L VIA NC- ABDOMEN SOFT/ROUND, BS X4 QUADS- LEFT MID PELVIC DRAIN INTACT, SCANT AMOUNT DARK BROWN LIQUID NOTED, DRESSING IN PLACE AND C/D/I- RIGHT IJ NOTED, DRESSING C/D/I, NO DRAINAGE NOTED- IVF/PROTNIX INFUSSING PRESCIBED- CLEAR LIQUIDS IN PLACE INDICATED-PT DENEIS ANT C/O PAIN/DISCOMFORT AT THIS TIME- CALL LIGHT AND PERSONAL BELONGINGS WITH IN REACH- HOURLY ROUNDS IN PLACE R/T SAFETY/NEEDS- ALL NEEDS MET AT THIS TIME-WC
[2017-12-04 12:25] VITALS: BP 111/59
[2017-12-04 16:00] VITALS: BP 122/65
--- NOTE | 2017-12-04 17:08 | NUR ---
PT CURRENTLY RESTING IN BED SIDE RECLINER, FAMILY AT SIDE VISITING- HOUSE FELLOW IN PLACE ORDERED, TRACING SR- PT NOTED TO BE UP WALKING HALLS THIS AFTERNOON, TOLERATED OKAY, STILL WEAK AND TIRES EASILY- FAIR PO INTAKE NOTED WITH CLEAR LIQUIDS THIS SHIFT NOTED TO BE TOLERATING JELLOW AND APPLEJUICE WITH MEALS- PT C/O PAIN X2 WITH PRN FENT GIVEN AT 1112, AND 1643- PT REPORTS MEDICATIONS TO BE EFFECTIVE- LIPASE ORDERED THIS SHIFT PER WITH OKAY TO START ENSURE IF LIPASE NORMAL- LIPASE RESULTED WNR AT 325- ABD KUB ORDERED FOR 12/05/17, CT FRO SAT- PT NOTED TO HAVE MODERATE SIZED LOOSE BROWN.GREEN BM THIS SHIFT- RIGHT IJ NOTED INTACT, IVF AND PROTONIX INFUSING PRESCIBED- CALL LIGHT AND PERSONAL BELONGINGS WITH IN REACH- PT MAKES NEEDS KNOWN- ALL NEEDS MET AT THIS TIME-[facility]
[2017-12-04 19:50] VITALS: BP 128/69
[2017-12-05] VITALS (8 sets, daily range): BP systolic 111–135; BP diastolic 59–69
--- NOTE | 2017-12-05 01:27 | NUR ---
PATIENT RESTING IN BED. SURGERY HERE AT BEGINNING OF SHIFT. PATIENT CAN HAVE CLEAR PROTIEN DRINK. BREEZE GIVEN AT START OF SHIFT. PATIENT CONT. IVF, PROTONIX DRIP AND ABX PER C-LINE. DENIES ANY FURTHER COMPLAINTS OF PAIN, DISCOMFORT, OR SOA. NO SIGN OF DISTRESS. WILL PROCEED WITH CURRENT PLAN OF CARE AT THIS TIME.
--- NOTE | 2017-12-05 02:25 | NUR ---
AT 0000, PATIENT'S TEMP WAS 100.5. THE SERVICE ARCHITECT TOLD THE THAT PATIENT'S TEMP WAS 100.5. WHEN THIS NURSE ENTERED THE ROOM SHORTLY AFTER THE STATED THAT NOTHING WAS BEING DONE ABOUT HIS TEMP OF 105. I EXPLAINED TO PATIENT AND THAT TEMP WAS 100.5, NOT 105, AND THAT I WOULD GET 2 TYL. 2 TYLENOL WAS GIVEN AND AM LAB WAS DRAWN THROUGH C-LINE. INFORMED PATIENT AND DAUGHTER THAT I WAS DRAWNING LAB EARLY FOR PRECAUTION OF THE SLOWLY ELEVATING TEMP. PATIENT CONT. ABX, AND IVF AT 100 ML PER HOUR. WILL CALL SURG RES IF ANY OF THE LAB IS CHANGED FROM HIS BASELINE RESULTS.
[2017-12-05 02:27] LABS: HEMATOCRIT 22.4 % (42.0-52.0); HEMOGLOBIN 7.6 gm/dL (14.0-18.0); MCH 29.5 pg (26.0-34.0); MCHC 33.8 g/dL (28.0-37.0); MCV 87.1 fL (80.0-100.0); MPV 7.1 fl. (7.2-11.1); RBC 2.58 mil/uL (4.50-6.00); WBC 8.4 thou/uL (4.0-11.0)
[2017-12-05 02:38] LABS: CALCIUM 7.8 mg/dL (8.5-10.1); CREATININE 0.6 mg/dL (0.6-1.3); PHOSPHORUS* 3.2 mg/dL (2.5-4.9); POTASSIUM 3.5 mmol/L (3.5-5.1)
--- NOTE | 2017-12-05 11:05 | NUR ---
ASSUMED PT CARE AT 0700 PT IS ALERT AND ORIENTED X4 PT C/O PAIN GAVE PT PAIN MEDS PT DENIES SOA ON 2L/NC, REASSESSED PT WHO STATES PO PAIN MEDS HELPED SOME GAVE PT FENTANYL, PT IS UP WITH SBA PT IS IN CHAIR, PT WENT FOR XRAY THIS AM, GI SAW PT ADVANCED DIET TO REGULAR, PT IS SR ON THE MONITOR, PT HAS DRAIN ON LEFT SIDE MINIMAL OUTPUT PT HAD BREEZE WITH BREAKFAST, WILL CONTINUE TO MONITOR
--- NOTE | 2017-12-05 14:49 | NUR ---
ASSUMED PT CARE AT 0700 PT IS ALERT AND ORIENTED X 4 PT C/O PAIN GAVE TRAMADOL PT DENIES SOA ON 2L/NC, PT IS UP WITH SBA PT IS A FALL RISK BED ALARM IS ON, PT IS SR ON THE MONITOR, GAVE PT FENTANYL WHICH PT STATES HELPED, ORDERS FOR CT ABD ORDERED BY HOSPITALIST AND GI PAGED HOSPITALIST WHO WANTS TEST DONE TODAY AND PAGED GI TO CANCEL TOMORROWS TEST AWAITING CALL BACK, PT NPO FOR TEST, PT DOWN IN CT DRAIN HAS MINIMAL OUTPUT, WILL CONTINUE TO MONITOR
[2017-12-05 16:40] LABS: HEMATOCRIT 24.3 % (42.0-52.0); HEMOGLOBIN 8.2 gm/dL (14.0-18.0); MCH 29.3 pg (26.0-34.0); MCHC 33.7 g/dL (28.0-37.0); MCV 86.8 fL (80.0-100.0); MPV 7.2 fl. (7.2-11.1); NUCLEATED RBCS 0 /100WBC; PLATELET COUNT* 250 thou/uL (150-400); RDW-CV 15.2 % (10.5-14.5); WBC 9.9 thou/uL (4.0-11.0)
[2017-12-05 17:12] LABS: ABSOLUTE LYMPHOCYTES 0.9 thou/uL (0.8-5.3); ABSOLUTE MONOCYTES 0.4 thou/uL (0.0-1.2); ABSOLUTE NEUTROPHILS 8.6 thou/uL (1.6-8.1); ALBUMIN 1.9 g/dL (3.4-5.0); ANISOCYTOSIS Occasional; CALCIUM 7.7 mg/dL (8.5-10.1); CREATININE 0.7 mg/dL (0.6-1.3); PLATELET ESTIMATE ADEQUATE; POLYCHROMASIA Occasional; POTASSIUM 3.5 mmol/L (3.5-5.1); TOTAL BILIRUBIN 0.6 mg/dL (<0.1-1.0); TOTAL PROTEIN 5.8 g/dL (6.4-8.2)
--- NOTE | 2017-12-05 18:06 | NUR ---
PATIENT CAME TO ICU PER DR FREGOSO. ALL VITALS WNL. PATIENT REPORTS NO PAIN, NAUSEA OR SHORTNESS OF AIR. ON 2 LITERS NASAL CANULA. AT BEDSIDE. CALL LIGHT IN REACH. GUM REMOVER IN PLACE. WILL CONTINUE TO MONITOR.
--- NOTE | 2017-12-05 19:03 | NUR ---
ATTEMPTED TO FLUSH DRAIN WITH 5CC NORMAL SALINE PER DR KOENIG BUT WAS UNABLE TOO. WILL PAGE AND LET HIM KNOW.
--- NOTE | 2017-12-05 19:07 | NUR ---
DR KOENIG NOTIFIED. HIM AND DR MESSINA WILL BE IN SOON TO SEE PATIENT.
[2017-12-05 20:30] LABS: URINE BILIRUBIN NEGATIVE (Negative); URINE BLOOD NEGATIVE (Negative); URINE CLARITY CLEAR; URINE COLOR YELLOW; URINE GLUCOSE-RANDOM NEGATIVE (Negative); URINE KETONES 2+ (Negative); URINE LEUKOCYTES-REFLEX NEGATIVE (Negative); URINE NITRITE-REFLEX NEGATIVE (Negative); URINE PROTEIN NEGATIVE (Negative); URINE SPECIFIC GRAVITY 1.015 (1.005-1.030); URINE UROBILINOGEN 0.2 E.U./dl (0.2-1.0)
[2017-12-06] VITALS (18 sets, daily range): BP systolic 98–139; BP diastolic 34–73
[2017-12-06 04:14] LABS: ABSOLUTE EOSINOPHILS 0.1 thou/uL (0.0-0.7); ABSOLUTE LYMPHOCYTES 0.7 thou/uL (0.8-5.3); ABSOLUTE MONOCYTES 0.7 thou/uL (0.0-1.2); ABSOLUTE NEUTROPHILS 6.8 thou/uL (1.6-8.1); BASOPHILS 0.2 %; EOSINOPHILS 0.7 %; HEMATOCRIT 23.1 % (42.0-52.0); HEMOGLOBIN 7.9 gm/dL (14.0-18.0); MCH 29.9 pg (26.0-34.0); MCHC 34.1 g/dL (28.0-37.0); MCV 87.6 fL (80.0-100.0); MPV 7.4 fl. (7.2-11.1); NUCLEATED RBCS 0 /100WBC; PLATELET COUNT* 224 thou/uL (150-400); POLYS 82.1 %; RBC 2.64 mil/uL (4.50-6.00); WBC 8.3 thou/uL (4.0-11.0)
[2017-12-06 04:29] LABS: ALBUMIN 1.8 g/dL (3.4-5.0); CALCIUM 7.4 mg/dL (8.5-10.1); CREATININE 0.6 mg/dL (0.6-1.3); POTASSIUM 3.4 mmol/L (3.5-5.1); TOTAL BILIRUBIN 0.7 mg/dL (<0.1-1.0); TOTAL PROTEIN 5.5 g/dL (6.4-8.2)
--- NOTE | 2017-12-06 05:01 | NUR ---
END SHIFT: PT RESTED WELL. PAIN CONTROLLED WITH PAIN MEDICATION. PT HAD FEVER THAT REPOSNDED WELL TO TYLENOL. NSR ON MONITOR. REMAINS ON 2L NC. PROTONIX GTT RUNNING AT 8MG/HR. DRAIN DRAINING MINIMAL DARK BROWN FLUID. HAS REMAINED NPO SINCE MN. SAFETY PRECAUTIONS IN PLACE. VSS. ASSESSMENT UNCHANGED. CALL LIGHT IN REACH. PERFORMED HOURLY ROUNDING. WILL CONT TO MONITOR.
[2017-12-06 05:32] LABS: MAGNESIUM 1.9 mg/dL (1.8-2.4); PHOSPHORUS* 3.7 mg/dL (2.5-4.9)
--- NOTE | 2017-12-06 10:00 | NUR ---
DR TOMAS FOR PT TO GO TO CT WITHOUT RN.
[2017-12-06 12:45] LABS: CREATININE 0.6 mg/dL (0.6-1.3); MAGNESIUM 2.1 mg/dL (1.8-2.4); POTASSIUM 3.9 mmol/L (3.5-5.1)
--- NOTE | 2017-12-06 18:09 | NUR ---
PT 'S MAX TEMPERATURE WAS 99.2. SURGER ORDERED PARTIAL BOWEL PREP. PER SURGERY IF PT UNABLE TO FINISH, IT IS OKAY. PT C/O OF LOWER ABDOMINAL PAIN RATING 3-4/10. PRN IV PAIN MEDICATION ADMININSTERED PER EMAR. PT VOIDING PER URINAL. VSS. PT AMBULATED IN UNIT. PT SITTING IN RECLINER THIS SHIFT.
[2017-12-07] VITALS (14 sets, daily range): BP systolic 91–129; BP diastolic 49–71
[2017-12-07 06:30] LABS: HEMATOCRIT 21.4 % (42.0-52.0); MCH 28.7 pg (26.0-34.0); MCHC 32.6 g/dL (28.0-37.0); MCV 87.9 fL (80.0-100.0); MPV 7.2 fl. (7.2-11.1); RBC 2.44 mil/uL (4.50-6.00); RDW-CV 15.1 % (10.5-14.5); WBC 3.9 thou/uL (4.0-11.0)
[2017-12-07 06:49] LABS: ALBUMIN 1.6 g/dL (3.4-5.0); CALCIUM 7.6 mg/dL (8.5-10.1); CREATININE 0.6 mg/dL (0.6-1.3); PHOSPHORUS* 3.3 mg/dL (2.5-4.9); POTASSIUM 3.5 mmol/L (3.5-5.1); TOTAL BILIRUBIN 0.6 mg/dL (<0.1-1.0); TOTAL PROTEIN 5.3 g/dL (6.4-8.2)
--- NOTE | 2017-12-07 14:06 | EKG ---
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[id number] Requested By: Cecil Higgins Order Number: [id number] Simran MD: Oz Olivo Measurements Intervals [place] Rate: 87 P: 32 UT: 150 QRS: -3 QRSD: 114 T: 5 QT: 371 QTc: 447 Interpretive Statements Sinus rhythm Incomplete right bundle branch block Compared to ECG 11/30/2017 11:44:44 Incomplete right bundle-branch block now present Sinus tachycardia no longer present Electronically Signed On 12-07-2017 14:06:08 CDT by Oz Olivo [email or web address] <ELECTRONICALLY SIGNED> By: Oz Olivo MD, [facility] 12/07/17 1406 [id number] Oz Olivo MD, [facility] /EPI
[2017-12-08] VITALS (14 sets, daily range): BP systolic 109–145; BP diastolic 64–78
[2017-12-08 04:50] LABS: ABSOLUTE EOSINOPHILS 0.1 thou/uL (0.0-0.7); ABSOLUTE LYMPHOCYTES 0.5 thou/uL (0.8-5.3); ABSOLUTE MONOCYTES 0.5 thou/uL (0.0-1.2); ABSOLUTE NEUTROPHILS 2.9 thou/uL (1.6-8.1); BASOPHILS 0.3 %; EOSINOPHILS 2.2 %; HEMATOCRIT 23.9 % (42.0-52.0); HEMOGLOBIN 7.9 gm/dL (14.0-18.0); LYMPHOCYTES 11.4 %; MCH 28.7 pg (26.0-34.0); MCHC 33.2 g/dL (28.0-37.0); MCV 86.5 fL (80.0-100.0); MONOCYTES 12.9 %; MPV 7.8 fl. (7.2-11.1); NUCLEATED RBCS 0 /100WBC; PLATELET COUNT* 227 thou/uL (150-400); POLYS 73.2 %; RBC 2.77 mil/uL (4.50-6.00); RDW-CV 15.3 % (10.5-14.5)
[2017-12-08 05:00] LABS: ALBUMIN 1.8 g/dL (3.4-5.0); CALCIUM 7.8 mg/dL (8.5-10.1); CREATININE 0.6 mg/dL (0.6-1.3); POTASSIUM 3.6 mmol/L (3.5-5.1); TOTAL BILIRUBIN 0.6 mg/dL (<0.1-1.0); TOTAL PROTEIN 5.5 g/dL (6.4-8.2)
[2017-12-08 05:54] LABS: MAGNESIUM 1.8 mg/dL (1.8-2.4); PHOSPHORUS* 3.6 mg/dL (2.5-4.9)
--- NOTE | 2017-12-08 05:55 | NUR ---
PT. PROGRESSING TOWARDS GOALS. ONE LOOSE STOOL THIS SHIFT, NO NOTICEABLE BLOOD. HGB 7.9 THIS A.M. 2L O2. SINUS RHYTHM. WILL CONTINUE TO MONITOR.
--- NOTE | 2017-12-08 08:00 | NUR ---
PATIENT CARE ASSUMED AT 0700. PATIENT ASSESSMENT STABLE CHARTED. PATIENT REPORTS PAIN AT 2/10, BUT DENIED THE NEED FOR MEDICATION AT THAT TIME. PATIENT NPO FOR POSSIBLE IR INTERVENTION (CHANGE OUT OF DRAIN). SURGERY CALLED TO CLARIFY PLAN PER IR REQUEST, SURGERY RESIDENT RETURNED CALL AND STATED THEY WOULD CLARIFY WITH SURGEON AND CALL BACK. AWAITING RETURN CALL. KEPT NPO, HOWEVER PROCAL AT 125 ML/HR STARTED PER HOSPITALIST. PATIENT UP IN CHAIR, WORKED WITH PT AND OT THIS AM. PATIENT UPDATED ON THE PLAN FOR TODAY, DENIES NEW CONCERNS.
--- NOTE | 2017-12-08 10:50 | NUR ---
Nutrition: Per ICU rounds, PPN was started on pt (Procalamine). Pt likely to go upstairs to med/surg. Pt was eating well. NPO today for change of ABRIL drain. Recommend d/c PPN and advance pt's diet when clinically able. Defer further assessment at this time.
--- NOTE | 2017-12-08 10:55 | NUR ---
SPOKE WITH PT AND SISTER. PT SAID HE IS FEELING A LITTLE BETTER. PT HAS NO QUESTIONS ABOUT PLAN OF CARE, HE IS NPO WAITING FOR A DRAIN TO BE REPLACED. 'I NEED A BIGGER DRAIN.' PT QUIET, ANSWERS DIRECT QUESTIONS. SAID HE IS JUST TIRED OF BEING IN THE HOSPITAL. CASE MGT WILL CONTINUE TO FOLLOW.
--- NOTE | 2017-12-08 14:48 | NUR ---
PATIENT RETURNED FROM IR PROCEDURE WITH [address] LIGHT MUDDY BROWN COLOR DRAINAGE IN DRAINAGE BAG, APPROX 10 ML. PATIENT RATED PAIN 4/10. PRN MORPHINE GIVEN. PER PATIENT REQUEST, MEDICATION DILUTED AND PUSHED OVER 2 MINUTES. PATIENT'S FAMILY PRESENT. ALL QUESTIONS ANSWERED, DENY FURTHER CONCERNS AT THIS TIME.
--- NOTE | 2017-12-08 17:00 | NUR ---
PATIENT PROGRESSING TOWARDS GOALS. HAS HAD SOME INCREASED PAIN SINCE DRAIN PLACEMENT, BUT CONTROLLED WITH PRN FENTANYL AND MORPHINE. PATIENT REQUESTS WHEN RECIEVING MORPHINE IT BE DILUTED WITH 10 ML AND PUSHED OVER 2 MINUTES. PATIENT DENIED NAUSEA THROUGHOUT SHIFT. STATED HE HAD A BOWEL MOVEMENT LAST NOC. NEW 10FR DRAIN WITH SMALL AMOUNTS OF LIGHT BROWN LIQUID OUTPUT. COPIOUS AMOUNTS OF URINE OUTPUT PER URINAL TODAY. REFER TO I&O. PATIENT TRANSFERED TO ROOM 108 AT 1500 BY WHEELCHAIR WITH [facility] SPECIALIST. REPORT GIVEN TO ADILSON.
--- NOTE | 2017-12-08 20:00 | NUR ---
PATIENT ARRIVED TO UNIT AT 1715. ALERT AND ORIENTED X4. UP AD JODI IN ROOM. IJ IS PATENT AND INFUSING IN TWO PORTS. PAIN BEING MANAGED WITH IV PAIN MEDICATION. NAUSEA BEING MANAGED WITH IV NAUSEA MEDICATION. TOLERATING FULL LIQUID DIET. VSS ON ROOM AIR. HOURLY ROUNDS HAVE BEEN MAINTAINED THROUGHOUT SHIFT. CALL LIGHT IS WITHIN REACH. NURSING WILL CONTINUE TO MONITOR.
[2017-12-09 04:59] LABS: HEMATOCRIT 23.5 % (42.0-52.0); HEMOGLOBIN 7.6 gm/dL (14.0-18.0); MCH 28.2 pg (26.0-34.0); MCHC 32.5 g/dL (28.0-37.0); MCV 86.6 fL (80.0-100.0); MPV 7.8 fl. (7.2-11.1); RBC 2.71 mil/uL (4.50-6.00); RDW-CV 15.6 % (10.5-14.5); WBC 3.5 thou/uL (4.0-11.0)
--- NOTE | 2017-12-09 05:09 | NUR ---
PATIENT REMAINS ALERT AND ORIENTED X4 THROUGHOUT NIGHT. VITAL SIGNS STABLE ON 2 LITERS OF OXYGEN. TRIPLE LUMEN IJ IN PLACE AND PATENT INFUSING MEDICATIONS PER ORDERS. ABCESS DRAIN IN PLACE AND PATENT. TRANSFERS WITH STANDBY ASSIST TO THE RESTROOM. USING URINAL IN BED. REPOSITIONING SELF IN BED. DENIES NAUSEA. PAIN MANAGED WITH IV PAIN MEDICATION. TOLERATING DIET THROUGHOUT NIGHT. RESTING COMFORTABLY. HOURLY ROUNDING COMPLETE. CALL LIGHT WITHIN REACH. NURSING WILL CONTINUE TO MONITOR.
[2017-12-09 05:31] LABS: CALCIUM 8.1 mg/dL (8.5-10.1); CREATININE 0.5 mg/dL (0.6-1.3); MAGNESIUM 2.2 mg/dL (1.8-2.4); PHOSPHORUS* 3.5 mg/dL (2.5-4.9); POTASSIUM 3.8 mmol/L (3.5-5.1)
[2017-12-09 05:36] LABS: ALBUMIN 1.8 g/dL (3.4-5.0); CALCIUM 7.8 mg/dL (8.5-10.1); CREATININE 0.5 mg/dL (0.6-1.3); POTASSIUM 4.1 mmol/L (3.5-5.1); TOTAL BILIRUBIN 0.4 mg/dL (<0.1-1.0); TOTAL PROTEIN 5.1 g/dL (6.4-8.2)
[2017-12-09 08:00] VITALS: BP 112/64
[2017-12-09 16:25] VITALS: BP 112/73
--- NOTE | 2017-12-09 18:32 | NUR ---
ALERT AND ORIENTED X4. UP AD JODI IN ROOM. IJ IS PATENT AND INFUSING X2 PORTS. PAIN BEING MANAGED WITH IV PAIN MEDICATION. NAUSEA BEING MANAGED WITH IV NAUSEA MEDICATION. PATIENT SHOWERED THIS EVENING. RN CHANGED CENTRAL LINE DRESSING THIS SHIFT. VSS ON 2L O2. HOURLY ROUNDS HAVE BEEN MAINTAINED THROUGHOUT SHIFT. CALL LIGHT IS WITHIN REACH. NURSING WILL CONTINUE TO MONITOR.
[2017-12-10 00:02] VITALS: BP 121/72
[2017-12-10 05:06] LABS: MAGNESIUM 2.1 mg/dL (1.8-2.4); PHOSPHORUS* 3.8 mg/dL (2.5-4.9)
[2017-12-10 05:07] LABS: ABSOLUTE EOSINOPHILS 0.1 thou/uL (0.0-0.7); ABSOLUTE LYMPHOCYTES 0.7 thou/uL (0.8-5.3); ABSOLUTE MONOCYTES 0.5 thou/uL (0.0-1.2); ABSOLUTE NEUTROPHILS 2.1 thou/uL (1.6-8.1); BASOPHILS 0.5 %; HEMATOCRIT 27.4 % (42.0-52.0); LYMPHOCYTES 20.1 %; MCH 28.4 pg (26.0-34.0); MCHC 32.9 g/dL (28.0-37.0); MCV 86.5 fL (80.0-100.0); MONOCYTES 14.2 %; MPV 7.4 fl. (7.2-11.1); NUCLEATED RBCS 0 /100WBC; PLATELET COUNT* 253 thou/uL (150-400); POLYS 61.2 %; RBC 3.17 mil/uL (4.50-6.00); RDW-CV 15.6 % (10.5-14.5); WBC 3.4 thou/uL (4.0-11.0)
--- NOTE | 2017-12-10 05:30 | NUR ---
ASSESSMENT COMPLETE. PT SLEPT GOOD WITH AT BEDSIDE. PT IS UP AD JODI. ABDOMINAL ABCESS DRAIN IN PLACE, SEE I&O FOR OUTPUT. PT GIVEN IV MORPHINE ONCE FOR PAIN. PT TOLERATING DIET. PT IS ON ROOM AIR WITH [place] SATS. SEE ASSESSMENT AND VITALS FOR OTHER DETAILS. CALL LIGHT WITHIN REACH, WILL CONTINUE PLAN OF CARE
[2017-12-10 06:06] LABS: ALBUMIN 2.1 g/dL (3.4-5.0); CALCIUM 8.2 mg/dL (8.5-10.1); CREATININE 0.6 mg/dL (0.6-1.3); TOTAL BILIRUBIN 0.5 mg/dL (<0.1-1.0); TOTAL PROTEIN 5.6 g/dL (6.4-8.2)
--- NOTE | 2017-12-10 17:30 | NUR ---
PATIENT RESTING IN BED. PATIENT HAD COMPLAINTS OF ABDOMINAL PAIN THIS AM, TREATED ADEQUATELY WITH MEDICATION. PATIENT HAD COMPLAINTS OF NAUSEA THIS AFTERNOON, TREATED ADEQUATELY WITH PHENERGAN. PATIENT HAS POOR TO FAIR APPETITE. PATIENT WAS UP TO CHAIR THIS AFTERNOON. PATIENT HAS THICK PURULENT DRAINAGE WITH AIR FROM ABSCESS DRAINAGE BAG. PATIENT DENIES ANY NEEDS AT THIS TIME. CALL LIGHT WITHIN REACH. WILL CONTINUE TO MONITOR.
[2017-12-10 17:40] VITALS: BP 130/73
[2017-12-10 20:50] VITALS: BP 141/69
[2017-12-11 06:32] LABS: HEMATOCRIT 25.6 % (42.0-52.0); HEMOGLOBIN 8.4 gm/dL (14.0-18.0); MCH 28.3 pg (26.0-34.0); MCHC 32.9 g/dL (28.0-37.0); MCV 86.1 fL (80.0-100.0); MPV 7.5 fl. (7.2-11.1); NUCLEATED RBCS 0 /100WBC; PLATELET COUNT* 265 thou/uL (150-400); RBC 2.97 mil/uL (4.50-6.00); RDW-CV 15.6 % (10.5-14.5); WBC 3.4 thou/uL (4.0-11.0)
--- NOTE | 2017-12-11 06:40 | NUR ---
PATIENT SLEPT PART OF THE NIGHT. PROTONIX DRIP AND IV ANTIBIOTICS WERE GIVEN ORDERED. PATIENT WAS GIVEN PAIN MEDICINE ONCE THIS SHIFT. DRAIN REMAINS TO RLQ OF ABDOMEN. WILL CONTINUE TO MONITOR.
[2017-12-11 06:46] LABS: CALCIUM 8.5 mg/dL (8.5-10.1); CREATININE 0.6 mg/dL (0.6-1.3); POTASSIUM 3.7 mmol/L (3.5-5.1); TOTAL BILIRUBIN 0.5 mg/dL (<0.1-1.0); TOTAL PROTEIN 5.9 g/dL (6.4-8.2)
[2017-12-11 07:49] LABS: ABSOLUTE EOSINOPHILS 0.1 thou/uL (0.0-0.7); ABSOLUTE LYMPHOCYTES 0.6 thou/uL (0.8-5.3); ABSOLUTE MONOCYTES 0.5 thou/uL (0.0-1.2); ABSOLUTE NEUTROPHILS 2.2 thou/uL (1.6-8.1)
[2017-12-11 07:50] LABS: PLATELET ESTIMATE ADEQUATE
[2017-12-11 08:30] LABS: MAGNESIUM 2.2 mg/dL (1.8-2.4); PHOSPHORUS* 4.8 mg/dL (2.5-4.9)
[2017-12-11 08:40] VITALS: BP 114/69
[2017-12-11 16:26] VITALS: BP 111/69
--- NOTE | 2017-12-11 17:22 | NUR ---
PATIENT UP IN CHAIR. PATIENT DENIES ANY NEED FOR PAIN MEDICATION. PATIENT HAS WALKED IN HALLS X 2 TODAY. PATIENT APPETITE IS BETTER THAT YESTERDAY. PATIENT DOES HAVE COMPLAINTS OF NAUSEA THIS EVENING, PHENERGAN GIVEN. ABSCESS DRAIN PUTTING OUT LESS AIR, STILL PURULENT BROWN DRAINAGE. PATIENT DENIES ANY NEEDS AT THIS TIME. CALL LIGHT WITHIN REACH. WILL CONTINUE TO MONITOR.
[2017-12-11 21:00] VITALS: BP 108/62
[2017-12-11 23:42] VITALS: BP 111/71
[2017-12-12 04:00] VITALS: BP 104/60
[2017-12-12 04:17] VITALS: BP 104/60
--- NOTE | 2017-12-12 04:31 | NUR ---
PATIENT HAS REMAINED ALERT AND ORIENTED X 4 THROUGHOUT THE SHIFT AND RESTING QUIETLY ON HOURLY ROUNDS. UP WITH IN ROOM. PASSING GAS BUT STATED NO BM X 2 DAYS. SURGERY (DR. KOENIG) NOTIFIED WITH NEW ORDER FOR INCREASE OF COLACE TO BID. ALSO ARRANGED AT THIS PHONE CALL FOR DR. MESSINA'S ROUNDING TIME TO BE RELAYED TO IN THE AM. PATIENT HAS NOT OF THIS WRITING REQUESTED ANYTHING FOR PAIN OR NAUSEA. MEDS PER ORDERS INCLUDING ANTIBIOTICS. VITAL SIGNS STABLE. CONTINUE TO MONITOR.
[2017-12-12 06:15] LABS: HEMOGLOBIN 8.7 gm/dL (14.0-18.0); MCH 28.5 pg (26.0-34.0); MCHC 33.3 g/dL (28.0-37.0); MCV 85.5 fL (80.0-100.0); MPV 7.4 fl. (7.2-11.1); RBC 3.04 mil/uL (4.50-6.00); RDW-CV 15.6 % (10.5-14.5); WBC 3.3 thou/uL (4.0-11.0)
[2017-12-12 06:42] LABS: ALBUMIN 2.2 g/dL (3.4-5.0); CALCIUM 8.5 mg/dL (8.5-10.1); CREATININE 0.6 mg/dL (0.6-1.3); POTASSIUM 3.7 mmol/L (3.5-5.1); TOTAL BILIRUBIN 0.5 mg/dL (<0.1-1.0); TOTAL PROTEIN 6.3 g/dL (6.4-8.2)
[2017-12-12 09:00] VITALS: BP 109/57
--- NOTE | 2017-12-12 15:33 | NUR ---
CONTINUE TO FOLLOW, MET WITH PT AND . DISCUSSED HH. HE IS AGREEABLE, WOULD PREFER JUST A NURSE. STATES HE IS WALKING WELL. OPTIONS DISCUSSED, OK TO USE [facility]. CALLED AND FAXED INTIAL REFERRAL TO [facility]. THEY WILL NEED CALL AND ORDERS AT [facility] [phone] FAX [phone]
[2017-12-12 15:34] VITALS: BP 109/57
[2017-12-12 16:27] VITALS: BP 110/69
--- NOTE | 2017-12-12 18:40 | NUR ---
PATIENT HAS BEEN A/O X 4 THIS SHIFT. HAS DENIED THE NEED FOR PAIN MEDS WHEN ASKED. PATIENT'S IV ANTIBIOTICS CHANGED TO ORAL THIS SHIFT. UP AD JODI IN ROOM AND AMBULATED IN HALLS WITH FAMILY THIS SHIFT. APPETITE SLOWLY IMPROVING PER PATIENT REPORT. ABSCESS DRAIN FLUSHED AND HAD 10ML OF BROWN DRAINAGE THIS SHIFT. AND FAMILY AT BEDSIDE THIS SHIFT. HOURLY ROUNDING COMPLETED. DC PLANNING IN PROCESS, HOPEFUL TO BE DISCHARGED SOON. CALL LIGHT WITHIN REACH. WILL CONTINUE WITH PLAN OF CARE.
[2017-12-12 20:00] VITALS: BP 105/66
[2017-12-13 04:33] VITALS: BP 109/57
[2017-12-13 04:43] LABS: HEMATOCRIT 26.9 % (42.0-52.0); HEMOGLOBIN 8.8 gm/dL (14.0-18.0); MCH 28.1 pg (26.0-34.0); MCHC 32.8 g/dL (28.0-37.0); MCV 85.6 fL (80.0-100.0); MPV 7.5 fl. (7.2-11.1); RBC 3.14 mil/uL (4.50-6.00); RDW-CV 15.7 % (10.5-14.5); WBC 3.5 thou/uL (4.0-11.0)
[2017-12-13 04:53] LABS: CALCIUM 8.7 mg/dL (8.5-10.1); CREATININE 0.7 mg/dL (0.6-1.3); POTASSIUM 3.7 mmol/L (3.5-5.1)
--- NOTE | 2017-12-13 05:32 | NUR ---
PT SLEPT MOST OF SHIFT. ASSESSMENT DOCUMENTED. MEDS GIVEN PER E-MAR. IJ PATENT. NO REPORTS OF PAIN OR NAUSEA. WILL CONTINUE WITH PLAN OF CARE.
[2017-12-13 08:00] VITALS: BP 111/71
[2017-12-13] MEDS ORDERED: HYDROCODONE-AP1 EAC6 PO (08:48)
[2017-12-13] MEDS ORDERED: THERA M PLUS T1 EAC2 PO (08:48)
[2017-12-13] MEDS ORDERED: ACIDOPHILUS1 EAC4 PO (08:48)
[2017-12-13] MEDS ORDERED: ZYVOX600 MG PO (08:48)
[2017-12-13] MEDS ORDERED: CIPRO500 MG PO (08:48)
[2017-12-13] MEDS ORDERED: REGLAN 10 MG TA10 MG PO (08:48)
[2017-12-13] MEDS ORDERED: TRAMADOL 50 MG50 MG PO (08:48)
[2017-12-13 09:55] VITALS: BP 109/57
--- NOTE | 2017-12-13 09:56 | NUR ---
Pt to dc home today with HH services to follow. SHELDON faxed final orders/dc summary and med list to [facility] at fax [phone] and called phone [phone] and spoke with Lisa who confirmed acceptance of referral and orders.
[2017-12-13 12:10] VITALS: BP 109/57
[2017-12-13] MEDS ORDERED: PHENERGAN12.5 M2 PO (14:24)
[2017-12-13 14:35] VITALS: BP 109/57
--- NOTE | 2017-12-13 14:35 | NUR ---
PATIENT DISCHARGED FROM UNIT AT 1430. ALERT AND ORIENTED X 4. VITAL SIGNS STABLE ON ROOM AIR. AFEBRILE. UP AD JODI IN ROOM AND AMBULATING IN HALLWAY. PICC IN RIGHT IJ DC'D PER DR. ROLDAN. DENIES PAIN OR NAUSEA. DISCHARGE INSTRUCTIONS, MEDICATION INFORMATION, AND SCRIPTS GIVEN TO PATIENT. LEFT WITH ALL BELONGINGS. PATIENT LEFT WITH VIA CAR.
--- NOTE | 2017-12-16 16:59 | CON ---
[address] [address] CONSULTATION Name: AUTUMN ROBERTSON Room: [address] IN .R.#: [id number] Admission: 11/30/17 Attend Phys: Ashley Spann Discharge: 12/13/17 Date of : 68 Report #: [id number] THIS REPORT FOR: //name// CC: Faiza Luna DICTATED BY: Trudy Kaminski [facility] DATE OF SERVICE: 12/01/2017 Please note at the time of this dictation, the patient was seen and physically examined by myself. REASON FOR CONSULTATION: Acute anemia, melanotic stool. HISTORY OF PRESENT ILLNESS: This is a pleasant 47-year-old male who was just recently discharged from the hospital on 11/29, following for hospitalization related to an upper GI bleed. The patient underwent endoscopy studies on November 25, when he was readmitted for his coffee-ground emesis secondary to postop complications of an ileus in which he had an NG tube down for a prolonged period of time. It was noted on EGD likely from the NG tube, he had an esophageal ulcer, gastric ulcers with an adherent clot, nonbleeding gastric ulcer that was noted. He was placed on Protonix and Carafate during that time. Repeat endoscopy study done on Friday, the day before discharge showed his hiatal hernia, gastric ulcers and duodenal erosions, which were all biopsied at that time. He was eating regular food. He denied any nausea or vomiting at that time and was doing relatively well. His stools he had also noted were just brown in color as well. The patient then on November 30 states he went to the bathroom, he started feeling chronic crampy in his stomach, he felt all of a sudden very weak. He did not have any nausea. He went to the bathroom and had a very large dark black stool he states. Then, he had a little bit of slight cough and he noticed a little bit of bright red blood on the tissue following the cough, but no vomiting noted. When he got to the emergency room, he had several other black stools and at that time, his hemoglobin was noted to be 5.8. He has received a total of 4 units of blood and his blood pressure was down also at the time when he was here in the 70s/40s. Since he has been here at the hospital, his hemoglobin this morning was 7.9; on discharge, he was 7.8, so he is back to his baseline. BUN and creatinine were not relatively elevated as they were before and were still in the normal range. He did have a black stool again this morning, but of significant less volume. It was also noted on CT that he had an abscess, that was noted that is getting drained by interventional radiology later today. The patient denies currently at the time of this dictation any nausea or vomiting or any [place] [address] CONSULTATION Name: AUTUMN ROBERTSON Room: [address] IN .R.#: [id number] Admission: 11/30/17 Attend Phys: Ashley Spann Discharge: 12/13/17 Date of : 68 Report #: [id number] ALLERGIES: PENICILLIN and SHELLFISH. MEDICATIONS FROM HOME: He was taking his Carafate and Protonix b.i.d. PAST MEDICAL HISTORY: He had diverticulitis. PAST SURGICAL HISTORY: Vasectomy, nasal septal repair and his recent sigmoid resection due to a perforated diverticulum on 11/14/2017 along with 2 previous EGDs. FAMILY HISTORY: Noncontributory. SOCIAL HISTORY: Negative for any tobacco, alcohol or illegal drug use at this time. REVIEW OF SYSTEMS: Twelve-point review of systems is essentially negative except what is mentioned in the HPI. PHYSICAL EXAMINATION: VITAL SIGNS: Temperature 36.5, pulse 96, respirations 20, blood pressure 123/75. HEART: Regular rate and rhythm. LUNGS: Clear. ABDOMEN: Soft, positive bowel sounds in all 4 quadrants with no masses or tenderness noted. LABORATORY DATA: Hemoglobin 7.9, hematocrit 23.1, white count is 12.8, platelets 286. Sodium 142, potassium 4, chloride 110, CO2 of 29, BUN is 15, creatinine is 0.8, GFR is 103, glucose is 109. CT of the abdomen and pelvis, post-surgical changes of the sigmoid resection. There is a large mixed gas and fluid collection within the lower abdomen and pelvis that abuts the sigmoid colon at the surgical site and extends between the bowel loops measuring 6.7 x 6.2 x 14.7 consistent with an intra-abdominal abscess. IMPRESSION: 1. Gastrointestinal bleed. 2. Melanotic stool. 3. Acute anemia. 4. Leukocytosis. 5. Abdominal abscess at previous surgical site. PLAN: 1. Continue Protonix drip. 2. Carafate a.c. and at bedtime. 3. IR to drain abscess today. 4. Monitor H [place] [address] CONSULTATION Name: AUTUMN ROBERTSON Room: [address] IN [facility]#: [id number] Admission: 11/30/17 Attend Phys: Ashley Spann Discharge: 12/13/17 Date of : 68 Report #: [id number] 5. May consider repeat endoscopy studies if his hemoglobin drops again. Thank you for allowing us to participate in this patient's care. Please do not hesitate to call with any questions in regard to this consult. ADDENDUM I have personally seen and examined the patient and reviewed labs. The patient with recent discharge from hospital after undergoing upper endoscopy, which was significant for multiple ulcers in cardia and the body. The patient has had persistent GI bleeding and melanotic stools requiring 4 units of packed RBC. His hemoglobin at this time is 7.9 and there is no further nausea and vomiting. We had put him on Reglan since admission. The patient is also on Protonix drip and Carafate 1 gram a.c. and at bedtime. We will continue monitoring hemoglobin and if he continued to drop his hemoglobin, we may consider repeating his upper scope. Meanwhile, the patient also has an abdominal abscess, which need to be drained. We will consult IR to drain the abscess. We will continue to monitor the patient closely and make further recommendation. <ELECTRONICALLY SIGNED> By: Jason Patel MD 12/16/17 1659 [id number] [id number] Patel MD /nt
--- NOTE | 2017-12-16 16:59 | CON ---
[address] [address] CONSULTATION Name: AUTUMN ROBERTSON Room: [address] IN M.R.#: [id number] Admission: 11/30/17 Attend Phys: Ashley Spann Discharge: 12/13/17 Date of : 68 Report #: [id number] THIS REPORT FOR: //name// CC: Freeman Carballo DATE OF SERVICE: 12/01/2017 ADDENDUM Consult number is [id number]. I have personally seen and examined the patient and reviewed labs. The patient with recent discharge from hospital after undergoing upper endoscopy, which was significant for multiple ulcers in cardia and the body. The patient has had persistent GI bleeding and melanotic stools requiring 4 units of packed RBC. His hemoglobin at this time is 7.9 and there is no further nausea and vomiting. We had put him on Reglan since admission. The patient is also on Protonix drip and Carafate 1 gram a.c. and at bedtime. We will continue monitoring hemoglobin and if he continued to drop his hemoglobin, we may consider repeating his upper scope. Meanwhile, the patient also has an abdominal abscess, which need to be drained. We will consult IR to drain the abscess. We will continue to monitor the patient closely and make further recommendation. <ELECTRONICALLY SIGNED> By: Jason Patel MD 12/16/17 1659 1636 [id number] Patel MD /david
== END 2017-12-13 14:30 | disposition home health service (06) | DRG 871 ==
LOC: M.ERS 11:30 → M.2W 12:31 → M.TBA-ER 12:31 → M.ICU 12:31 → M.2W 12-01 22:50 → M.ICU 12-05 17:35 → M.ORTHSURG 12-08 17:34
PROVIDERS: Family Medicine; Internal Medicine; Nurse Practitioner Adult Health; Surgery; ADMIT Internal Medicine
PROC: 30243N1 Transfusion of Nonautologous Red Blood Cells into Central Vein, Percutaneous Approach (ICD-10-PCS; principal; 2017-11-30)
PROC: 02HV33Z Insertion of Infusion Device into Superior Vena Cava, Percutaneous Approach (ICD-10-PCS; principal; 2017-11-30)
PROC: 0W9J30Z Drainage of Pelvic Cavity with Drainage Device, Percutaneous Approach (ICD-10-PCS; 2017-12-01)
PROC: 0W2GX0Z Change Drainage Device in Peritoneal Cavity, External Approach (ICD-10-PCS; 2017-12-08)
DX: A41.9 Sepsis, unspecified organism (principal); J96.00 Acute respiratory failure, unspecified whether with hypoxia or hypercapnia; K25.4 Chronic or unspecified gastric ulcer with hemorrhage; K22.11 Ulcer of esophagus with bleeding; E43 Unspecified severe protein-calorie malnutrition; T81.4XXA Infection following a procedure, initial encounter; D62 Acute posthemorrhagic anemia; L02.211 Cutaneous abscess of abdominal wall; J90 Pleural effusion, not elsewhere classified; K57.92 Diverticulitis of intestine, part unspecified, without perforation or abscess without bleeding; R65.20 Severe sepsis without septic shock; E87.6 Hypokalemia; Y83.8 Other surgical procedures as the cause of abnormal reaction of the patient, or of later complication, without mention of misadventure at the time of the procedure; Y92.89 Other specified places as the place of occurrence of the external cause; Z68.36 Body mass index [BMI] 36.0-36.9, adult; Z88.0 Allergy status to penicillin; Z91.013 Allergy to seafood; Z90.49 Acquired absence of other specified parts of digestive tract; Z98.52 Vasectomy status; Z79.2 Long term (current) use of antibiotics; Z79.82 Long term (current) use of aspirin; Z79.899 Other long term (current) drug therapy; Z80.9 Family history of malignant neoplasm, unspecified